=== PATIENT | male | born 1970 | race American Indian/Alaskan Native ===

== ENCOUNTER 2016-10-26 18:10 | Emergency (ER) | payer OTHER ==
[2016-10-26 18:16] VITALS: BP 126/66; PULSE 93; RESP 16; TEMP 98; O2SAT 98
[2016-10-26] MEDS ORDERED: Sodium Chloride 0.9% 1,000 ML IV STA (19:27)
--- NOTE | 2016-10-26 19:47 | ED PDOC ---
HPI: Abdomen Time Seen by Provider: 10/26/16 19:18 Chief Complaint (Nursing): GI Problem Chief Complaint (Provider): Abdominal Pain History Per: Patient, Family (Mother) History/Exam Limitations: no limitations Onset/Duration Of Symptoms: Days (today) Outside of [place] travel?: No Current Symptoms Are (Timing): Still Present Location Of Pain/Discomfort: Diffuse Quality Of Discomfort: Unable To Describe Associated Symptoms: Chills, Vomiting (x3, non-bilious/non-bloody), Diarrhea (x2 , non-bloody), Other (headache (not worst of life), cough (mild, x2 days), syncopal episode x1 (lasted 20 mins); no rhinorrhea, sore throat). denies: Fever Additional Complaint(s): Eben Das is a 45 year old male, with a past medical history inclusive of migraines and a stomach ulcer (no medications), who presents to the ED on , accompanied by his mother, for the evaluation of moderate, diffuse abdominal pain that he has experienced since this morning. Associated chills also reported in addition to 3 episodes of non-bilious/non-bloody vomiting, 2 episodes of non-bloody diarrhea, a mild cough (x2 days) and a headache (not worst of life). Patient also reports having syncopized earlier today, an episode which he reports lasted approximately 20 minutes. Denies injury/trauma as a result of syncopal episode as well as fever, rhinorrhea, sore throat, recent travel or known sick contacts. Of note, patient has a prior history of drug abuse (marijuana, cocaine) but states that he has not used in many years. PMD: none Past Medical History Reviewed: Historical Data, Nursing Documentation, Vital Signs Vital Signs: Last Vital Signs Temp 98.0 F 10/26/16 18:14 Pulse 93 H 10/26/16 18:14 Resp 16 10/26/16 18:14 BP 126/66 10/26/16 18:14 Pulse Ox 98 10/26/16 21:46 - Medical History PMH: Anemia, Asthma, Back Problems (scoliosis), Depression, Migraine Denies: Chronic Kidney Disease, Seizures Other PMH: peptic ulcer - Surgical History Other surgeries: craniotomy w/subsequent tube placement (s/p trauma) - Family History Family History: States: Other (stomach cancer (father)) - Social History Current smoker - smoking cessation education provided: Yes (occasional) Alcohol: Occasional (weekends) Drugs: Cannabis, Cocaine (teenager) - Home Medications Home Medications: Ambulatory Orders Medication Instructions Recorded Dicyclomine Hydrochloride 10 mg PO PRN PRN 10/30/13 [Dicyclomine HCl] Omeprazole [Omeprazole D/R] 20 mg PO DAILY 10/30/13 Docusate Sodium [Colace] 100 mg PO DAILY #30 sgl 09/07/14 Hard Fat/Phenylephrine [place] 1 sup RC BID #10 sup 09/07/14 [Anusol Suppository] Oxycodone HCl/Acetaminophen 1 tab PO Q6 #6 tab 09/07/14 [Percocet 325 mg-5 mg] - Allergies Allergies/Adverse Reactions: Allergies Allergy/AdvReac Type Severity Reaction Status Date / Time No Known Allergies Allergy Verified 10/26/16 18:14 Review of Systems ROS Statement: Except As Marked, All Systems Reviewed And Found Negative Constitutional: Positive for: Chills. Negative for: Fever ENT: Negative for: Nose Discharge, Throat Pain Cardiovascular: Positive for: Other (syncopal episode x1) Respiratory: Positive for: Cough. Negative for: Sputum Gastrointestinal: Positive for: Vomiting (x3, non-bilious/non-bloody), Abdominal Pain (diffuse), Diarrhea (x2, non-bloody) Neurological: Positive for: Headache (not worst of life) Physical Exam - Reviewed Nursing Documentation Reviewed: Yes Vital Signs Reviewed: Yes - Physical Exam Appears: Positive for: Non-toxic, Uncomfortable, In Acute Distress Head Exam: Positive for: ATRAUMATIC, NORMOCEPHALIC Skin: Positive for: Normal Color, Warm, Dry ENT: Positive for: Other (dry mucous membranes). Negative for: Pharyngeal Erythema, Tonsillar Exudate, Tonsillar Swelling Cardiovascular/Chest: Positive for: Regular Rate, Rhythm. Negative for: Murmur Respiratory: Positive for: Normal Breath Sounds. Negative for: Respiratory Distress Gastrointestinal/Abdominal: Positive for: Soft, Tenderness (diffuse), Guarding ( diffuse). Negative for: Rebound Extremity: Positive for: Normal ROM (FROM x4 extremities), Other (tremors noted within all extremities, poor muscle bulk diffusely) Neurologic/Psych: Positive for: Alert, Oriented - Laboratory Results Result Diagrams: 10/26/16 20:00 10/26/16 20:00 - ECG O2 Sat by Pulse Oximetry: 98 (RA) Pulse Ox Interpretation: Normal Medical Decision Making Medical Decision Makin:18 Initial Impression: abdominal pain, vomiting, diarrhea Initial Plan: * EKG * Blood Type/Screen * Labs * CPK * Lactic Acid * Lipase * Magnesium * Phosphorus * Troponin I * PTT * PT * Alcohol Serum * Glucose/Blood/POC * Udip * Urinalysis * Urine Drug screen * IV NS 1000ml at 1000mls/hr * Dextrose 1000ml at 100mls/hr * Pepcid 20mg IVP * Zofran 8mg IV * Reevaluation EXAM: CT Abdomen and Pelvis With Intravenous Contrast CLINICAL HISTORY: 45 years old, male; Pain; Abdominal pain; Generalized; Additional info: Vomiting leukocytosis. Sent e. D. Physician documentation with request TECHNIQUE: Axial computed tomography images of the abdomen and pelvis with intravenous contrast. This CT exam was performed using one or more of the following dose reduction techniques: automated exposure control, adjustment of the mA and/or kV according to patient size, and/or use of iterative reconstruction technique. Coronal and sagittal reformatted images were created and reviewed. CONTRAST: 90 mL of [id number] administered intravenously. COMPARISON: No relevant prior studies available. FINDINGS: Lower thorax: Small bulla in the lung bases. ABDOMEN: Liver: Tiny probable cysts in the liver. Gallbladder and bile ducts: Unremarkable. No calcified stones. No ductal dilation. Pancreas: Unremarkable. No mass. No ductal dilation. Spleen: Unremarkable. No splenomegaly. Adrenals: Unremarkable. No mass. Kidneys and ureters: Left renal cyst. No hydronephrosis. Stomach and bowel: Unremarkable. No obstruction. No mucosal thickening. Appendix: Normal appendix. PELVIS: Bladder: Unremarkable. No mass. Reproductive: Unremarkable as visualized. ABDOMEN and PELVIS: Intraperitoneal space: Unremarkable. No free air. No significant fluid collection. Bones/joints: No acute fracture. No dislocation. Soft tissues: Unremarkable. Vasculature: Unremarkable. No abdominal aortic aneurysm. Lymph nodes: Unremarkable. No enlarged lymph nodes. IMPRESSION: No acute findings. Thank you for allowing us to participate in the care of your patient. Dictated and Authenticated by: Hardik Calle MD 10/26/2016 9:27 PM Eastern Time ([place] & [place]) 21:54 Labs reviewed, notable for leukocytosis and elevated lactic acid. Upon provider reevaluation patient reports that he is feeling better. Will attempt PO challenge and repeat CBC and lactic acid. Scribe Attestation: Documented by Alia Daniel, acting as a scribe for Patricia Dejesus MD. Provider Scribe Attestation: All medical record entries made by the Scribe were at my direction and personally dictated by me. I have reviewed the chart and agree that the record accurately reflects my personal performance of the history, physical exam, medical decision making, and the department course for this patient. I have also personally directed, reviewed, and agree with the discharge instructions and disposition.
[2016-10-26 20:32] LABS: BASO % 0.1 % (0.0-2.0); HEMATOCRIT 46.1 % (35.0-51.0); LYMPH # 0.7 K/uL (1.0-4.3); LYMPH % 3.8 % (20.0-40.0); MEAN CELL VOLUME 95.1 fl (80.0-94.0); MEAN CORPUSCULAR HEMOGLOBIN 31.9 pg (27.0-31.0); MEAN CORPUSCULAR HGB CONC 33.6 g/dL (33.0-37.0); MEAN PLATELET VOLUME 10.6 fl (7.2-11.7); MONO # 1.1 K/uL (0.0-0.8); MONO % 5.8 % (0.0-10.0); NEUT # 17.5 K/uL (1.8-7.0); NEUT % 90.3 % (50.0-75.0); PLATELET COUNT 88 K/uL (130-400); RED CELL DISTRIBUTION WIDTH 12.9 % (11.5-14.5); WHITE BLOOD COUNT 19.3 K/uL (4.8-10.8)
[2016-10-26 20:40] LABS: ALB/GLOB RATIO 1.4 (1.0-2.1); ALCOHOL SERUM < 10 mg/dl (0-10); ALKALINE PHOSPHATASE 106 U/L (38-126); ALT/SGPT 34 U/L (21-72); AST/SGOT 31 U/L (17-59); BILIRUBIN,TOTAL 0.9 mg/dl (0.2-1.3); BLOOD UREA NITROGEN 11 mg/dl (9-20); CALCIUM 9.3 mg/dL (8.4-10.2); CARBON DIOXIDE 23 mmol/L (22-30); CHLORIDE 102 mmol/L (98-107); GFR AFRICAN-AMERICAN > 60; GLUCOSE,RANDOM 130 mg/dL (75-110); LIPASE 27 U/L (23-300); MAGNESIUM 2.5 MG/DL (1.6-2.3); POTASSIUM 3.9 MMOL/L (3.6-5.0); SODIUM 136 mmol/l (132-148); TOTAL PROTEIN 7.7 G/DL (6.3-8.2)
[2016-10-26] MEDS ORDERED: Iohexol 300 100 ML IJ ONE (20:48)
[2016-10-26] MEDS ORDERED: Sodium Chloride 0.9% 50 ML IV ONE (20:48)
[2016-10-26 21:05] LABS: TOTAL CELLS COUNTED 100
[2016-10-26 21:06] LABS: GIANT PLATELETS PRESENT; LARGE PLATELETS PRESENT; NEUTROPHIL 90 % (42-75)
[2016-10-26 21:07] LABS: PARTIAL THROMBOPLASTIN TIME 25.8 SECONDS (23.3-32.5)
[2016-10-26 22:17] LABS: RBC URINE 5 /hpf (0-3); URINE BILIRUBIN NEGATIVE (NEGATIVE); URINE BLOOD SMALL (NEGATIVE); URINE CALCIUM OXALATE CRYSTALS MOD /hpf (<OCC); URINE COLOR YELLOW (YELLOW); URINE GLUCOSE (UA) 50 mg/dL (Normal); URINE KETONE TRACE mg/dL (NEGATIVE); URINE LEUKOCYTE ESTERASE NEG Leu/uL (Negative); URINE PROTEIN 30 mg/dL (NEGATIVE); URINE UROBILINOGEN 0.2-1.0 mg/dL (0.2-1.0); WBC URINE 2 /hpf (0-5)
[2016-10-26 22:40] LABS: BASO % 0.1 % (0.0-2.0); HEMATOCRIT 42.9 % (35.0-51.0); LYMPH # 0.6 K/uL (1.0-4.3); LYMPH % 3.4 % (20.0-40.0); MEAN CELL VOLUME 95.4 fl (80.0-94.0); MEAN CORPUSCULAR HGB CONC 33.6 g/dL (33.0-37.0); MEAN PLATELET VOLUME 11.4 fl (7.2-11.7); MONO # 0.9 K/uL (0.0-0.8); MONO % 5.2 % (0.0-10.0); NEUT # 16.4 K/uL (1.8-7.0); NEUT % 91.3 % (50.0-75.0); WHITE BLOOD COUNT 17.9 K/uL (4.8-10.8)
--- NOTE | 2016-10-27 08:44 | CT ---
PROCEDURE: CT Abdomen and Pelvis with contrast HISTORY: vomiting leukocytosis COMPARISON: None. TECHNIQUE: Contrast dose: Radiation dose: Total exam DLP = mGy-cm. FINDINGS: LOWER THORAX: Unremarkable. LIVER: Unremarkable. No gross lesion or ductal dilatation. GALLBLADDER AND BILE DUCTS: Unremarkable. PANCREAS: Unremarkable. No gross lesion or ductal dilatation. SPLEEN: Unremarkable. ADRENALS: Unremarkable. No mass. KIDNEYS AND URETERS: Unremarkable. No hydronephrosis. No solid mass. 1 centimeter left renal cyst. VASCULATURE: Unremarkable. No aortic aneurysm. BOWEL: Unremarkable. No obstruction. No gross mural thickening. APPENDIX: Normal appendix. PERITONEUM: Unremarkable. No free fluid. No free air. LYMPH NODES: Unremarkable. No enlarged lymph nodes. BLADDER: Unremarkable. REPRODUCTIVE: Unremarkable. BONES: No acute fracture. OTHER FINDINGS: None. IMPRESSION: 1 centimeter left renal cyst.
--- NOTE | 2016-10-27 11:41 | CARD ---
APPROVED REPORT EKG Measurement Heart [id number] <Conclusion> Normal sinus rhythm with sinus arrhythmia Incomplete right bundle branch block Nonspecific T wave abnormality Abnormal ECG
== END 2016-10-27 00:33 | disposition home or self-care (01) ==
LOC: H.ER 18:10
DX: R05 Cough (principal); D72.829 Elevated white blood cell count, unspecified; N28.1 Cyst of kidney, acquired

== ENCOUNTER 2016-12-11 01:00 | Emergency (ER) | payer OTHER ==
[2016-12-11 01:20] VITALS: BP 146/96; PULSE 80; RESP 16; TEMP 98.4; O2SAT 99
[2016-12-11] MEDS ORDERED: Lidocaine 2.5% OINTMENT TOP ONE (01:42)
[2016-12-11 02:04] LABS: HEMATOCRIT 43.5 % (35.0-51.0); MEAN CELL VOLUME 96.5 fl (80.0-94.0); MEAN CORPUSCULAR HEMOGLOBIN 32.3 pg (27.0-31.0); MEAN CORPUSCULAR HGB CONC 33.4 g/dL (33.0-37.0); RED CELL DISTRIBUTION WIDTH 13.4 % (11.5-14.5); WHITE BLOOD COUNT 10.5 K/uL (4.8-10.8)
--- NOTE | 2016-12-11 02:21 | ED PDOC ---
HPI: Abdomen Time Seen by Provider: 12/11/16 01:17 Chief Complaint (Nursing): Abdominal Pain Chief Complaint (Provider): Abdominal Pain History Per: Patient History/Exam Limitations: no limitations Current Symptoms Are (Timing): Still Present Additional History Per: Patient Additional Complaint(s): Eben Das is a 46 year old male with a past medical history of asthma, anemia, back problems, migraines, and depression, who presents to the ED with a chief complaint of rectal pain. Denies any associated symptoms including abdominal pain. Patient reports she noticed yesterday that there was blood in the stool and she was straining due to constipation. Past Medical History Reviewed: Historical Data, Nursing Documentation, Vital Signs Vital Signs: Last Vital Signs Temp 98.4 F 12/11/16 01:15 Pulse 80 12/11/16 01:15 Resp 16 12/11/16 01:15 BP 146/96 H 12/11/16 01:15 Pulse Ox 99 12/11/16 02:56 - Medical History PMH: Anemia, Asthma, Back Problems (scoliosis), Depression, Migraine Denies: Chronic Kidney Disease, Seizures - Surgical History Surgical History: No Surg Hx - Family History Family History: States: No Known Family Hx - Home Medications Home Medications: Ambulatory Orders Medication Instructions Recorded Dicyclomine Hydrochloride 10 mg PO PRN PRN 10/30/13 [Dicyclomine HCl] Omeprazole [Omeprazole D/R] 20 mg PO DAILY 10/30/13 Docusate Sodium [Colace] 100 mg PO DAILY #30 sgl 09/07/14 Hard Fat/Phenylephrine [place] 1 sup RC BID #10 sup 09/07/14 [Anusol Suppository] Oxycodone HCl/Acetaminophen 1 tab PO Q6 #6 tab 09/07/14 [Percocet 325 mg-5 mg] Dicyclomine [Bentyl] 20 mg PO BID PRN #30 tab 10/26/16 Omeprazole Magnesium [Prilosec Otc] 20 mg PO DAILY #30 tcp 10/26/16 Ondansetron [Zofran] 4 mg PO Q8H PRN #30 tab 10/26/16 Docusate [Colace] 100 mg PO BID #20 cap 12/11/16 Phenyleph/Pramoxin/Glycr/W.pet 26 gm RC BID #1 cream..g. 12/11/16 [Preparation H Cream] - Allergies Allergies/Adverse Reactions: Allergies Allergy/AdvReac Type Severity Reaction Status Date / Time No Known Allergies Allergy Verified 10/26/16 18:14 Review of Systems ROS Statement: Except As Marked, All Systems Reviewed And Found Negative Gastrointestinal: Positive for: Constipation, Rectal Pain. Negative for: Abdominal Pain Physical Exam - Reviewed Nursing Documentation Reviewed: Yes Vital Signs Reviewed: Yes - Physical Exam Appears: Positive for: Well, No Acute Distress Head Exam: Positive for: ATRAUMATIC, NORMAL INSPECTION, NORMOCEPHALIC Skin: Positive for: Normal Color, Warm, Dry Eye Exam: Positive for: Normal appearance, EOMI, PERRL ENT: Positive for: Normal ENT Inspection Neck: Positive for: Normal, Painless ROM, Supple Cardiovascular/Chest: Positive for: Regular Rate, Rhythm, Chest Non Tender. Negative for: Murmur, Tachycardia Respiratory: Positive for: Normal Breath Sounds Gastrointestinal/Abdominal: Positive for: Soft, Other. Negative for: Tenderness , Mass, Guarding, Rebound Male Genital Exam: Positive for: normal genitalia Back: Positive for: Normal Inspection Rectal: Positive for: Hemorrhoids (External), Other (No thrombrosis, pink, fleshy, reducible, scant blood) Extremity: Positive for: Normal ROM Neurologic/Psych: Positive for: Alert, Oriented - Laboratory Results Result Diagrams: 12/11/16 01:58 - ECG O2 Sat by Pulse Oximetry: 99 (RA) Pulse Ox Interpretation: Normal Medical Decision Making Medical Decision Makin: Initial Impression: Hemorrhoid Initial Plan: * CBC * Lidocain 2.5% * Will prescribe creme and have patent follow up with GI Patient platelets is 77 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 Scribe Attestation: Documented by Harman Rincon acting as a scribe for Stephan Daly MD. Provider Scribe Attestation: All medical record entries made by the Scribe were at my direction and personally dictated by me. I have reviewed the chart and agree that the record accurately reflects my personal performance of the history, physical exam, medical decision making, and the department course for this patient. I have also personally directed, reviewed, and agree with the discharge instructions and disposition. Disposition - Clinical Impression Clinical Impression: Hemorrhoids, Thrombocytopenia - Disposition Referrals: [facility] [Outside] Hardik Tyler MD, PhD [Staff Provider] - Disposition Time: 02:30 Condition: STABLE Prescriptions: Docusate [Colace] 100 mg PO BID #20 cap Phenyleph/Pramoxin/Glycr/W.pet [Preparation H Cream] 26 gm RC BID #1 cream..g. Instructions: Hemorrhoids (ED)
== END 2016-12-11 03:20 | disposition home or self-care (01) ==
LOC: H.ER 01:00
DX: K64.8 Other hemorrhoids (principal); D69.6 Thrombocytopenia, unspecified

== ENCOUNTER 2017-04-05 13:08 | Inpatient (IN) | payer OTHER ==
--- NOTE | 2017-04-05 13:39 | ED PDOC ---
HPI: General Adult Time Seen by Provider: 04/05/17 13:34 Chief Complaint (Nursing): Abdominal Pain Chief Complaint (Provider): nausea History Per: Patient Additional Complaint(s): Patient presents to emergency department complaining of nausea, vomiting and generalized body aches. Patient denies any known fever or chills. He denies any chest pain or shortness of breath. Patient has had dry cough as well. Patient admits to having a poor appetite over the past few days. He admits to occasional alcohol use and marijuana use but denies use of any other drugs. EMS who brought patient to ED states that he has history of heroin abuse. Past Medical History Reviewed: Historical Data, Nursing Documentation, Vital Signs Vital Signs: Last Vital Signs Temp 97.5 F L 04/05/17 18:40 Pulse 86 04/05/17 18:40 Resp 24 04/05/17 18:40 BP 106/60 04/05/17 18:40 Pulse Ox 99 04/05/17 18:43 - Medical History PMH: Anemia, Asthma, Back Problems (scoliosis), Depression, Migraine - Surgical History Other surgeries: placement of shunt in brain - Family History Family History: States: No Known Family Hx - Living Arrangements Living Arrangements: With Family - Social History Current smoker - smoking cessation education provided: Yes Alcohol: Social Drugs: Cannabis - Home Medications Home Medications: Ambulatory Orders Medication Instructions Recorded No Known Home Med 04/05/17 - Allergies Allergies/Adverse Reactions: Allergies Allergy/AdvReac Type Severity Reaction Status Date / Time No Known Allergies Allergy Verified 10/26/16 18:14 Review of Systems ROS Statement: Except As Marked, All Systems Reviewed And Found Negative Constitutional: Positive for: Weakness, Malaise, Other (body aches). Negative for: Fever, Chills Cardiovascular: Negative for: Chest Pain, Palpitations Respiratory: Positive for: Cough (dry) Gastrointestinal: Positive for: Nausea, Vomiting, Abdominal Pain, Diarrhea Genitourinary Male: Negative for: Dysuria Neurological: Positive for: Headache (patient states he has chronic migraines). Negative for: Dizziness Physical Exam - Reviewed Nursing Documentation Reviewed: Yes Vital Signs Reviewed: Yes - Physical Exam Appears: Positive for: Non-toxic. Negative for: Well (appears cachectic) Skin: Negative for: Rash Eye Exam: Positive for: Normal appearance, EOMI, PERRL Cardiovascular/Chest: Positive for: Regular Rate, Rhythm Respiratory: Positive for: Normal Breath Sounds. Negative for: Wheezing, Respiratory Distress Gastrointestinal/Abdominal: Positive for: Tenderness (moderate tenderness in all 4 quadrants, no distention, guarding or rebound, normoactive bowel sounds in all 4 quadrants) Back: Negative for: L CVA Tenderness, R CVA Tenderness Extremity: Positive for: Normal ROM Neurologic/Psych: Positive for: Alert, Oriented - Laboratory Results Result Diagrams: 04/05/17 14:00 04/05/17 14:00 - ECG O2 Sat by Pulse Oximetry: 99 Pulse Ox Interpretation: Normal - Other Rad Chest Bedside X-Ray: Interpreted by Me, Viewed By Me X-Ray Interpretation: see below CT abd and pelvis with oral and IV contrast X-Ray: Read By Radiologist - Core Measure Core Measure Indicators: Code Sepsis - Critical Care Total Time (In Min): 45 Medical Decision Making Medical Decision Makin46 year old with generalized malaise Plan: CBC CMP Trop Lipase UDS CPK UA EKG CXR IVF IV toradol IV zofran CT abd and pelvis with oral and IV contrast ED OBSERVATION Date of observation admission: 04/05/17 Time of observation admission: 14:21 - Observation admission statement Patient is being placed in observation because:: Abdominal pain, malaise - Goals of Observation Goals of observation are:: Work up to determine cause of presenting symptoms - Progress Note Progress Note: CXR: IMPRESSION: Findings are most compatible with acute interstitial/ atypical/ viral pneumonitis. No focal consolidation. Lactate: 5.3, WBC 22.4. Platelets also noted to be low at 77 but this is unchanged when compared to previous labs. Case was d/w ED attending Dr. Black. Code sepsis initiated. Patient given fluid bolus (30 ml/kg) - 1500 cc. IV zosyn and vanco ordered. CXR shows pneumonitis, IV 500 mg Zithromax ordered. Case was d/w Change Booth Attendant, Dr. Butler regarding ICU admission. Case was also d/w family practice resident for admission. CT abd and pelvis: IMPRESSION: 1. No acute abdominal or pelvic abnormality. Specifically, no evidence of acute appendicitis or bowel obstruction. 2. Moderate enlargement of the prostate gland. Please correlate with PSA levels. 3. Apparent mild mural thickening of the urinary bladder wall. Please correlate with urine analysis to exclude cystitis. As per Dr. Butler, CT head ordered as patient has history of shunt. Repeat Lactate is 2.0. Patient can be admitted to Telemetry instead of ICU. CT head: no acute finding Disposition - Clinical Impression Clinical Impression: Abdominal pain, Sepsis - Patient ED Disposition Is Patient to be Admitted: Yes - Disposition Disposition Time: 18:15 Condition: CRITICAL
[2017-04-05] MEDS ORDERED: Sodium Chloride 0.9% 1,000 ML IV STA (13:49)
[2017-04-05 14:10] LABS: BASO # 0.1 K/uL (0.0-0.2); BASO % 0.3 % (0.0-2.0); HEMATOCRIT 45.2 % (35.0-51.0); LYMPH # 0.7 K/uL (1.0-4.3); LYMPH % 3.4 % (20.0-40.0); MEAN CELL VOLUME 96.2 fl (80.0-94.0); MEAN CORPUSCULAR HEMOGLOBIN 32.2 pg (27.0-31.0); MEAN CORPUSCULAR HGB CONC 33.4 g/dL (33.0-37.0); MEAN PLATELET VOLUME 11.2 fl (7.2-11.7); MONO % 4.6 % (0.0-10.0); NEUT # 20.5 K/uL (1.8-7.0); NEUT % 91.7 % (50.0-75.0); PLATELET COUNT 77 K/uL (130-400); RED CELL DISTRIBUTION WIDTH 12.8 % (11.5-14.5); WHITE BLOOD COUNT 22.4 K/uL (4.8-10.8)
[2017-04-05] MEDS ORDERED: Iohexol 240 (50 ml) PO STA (14:19)
[2017-04-05 14:21] LABS: ALB/GLOB RATIO 1.7 (1.0-2.1); ALCOHOL SERUM < 10 mg/dl (0-10); ALKALINE PHOSPHATASE 95 U/L (38-126); ALT/SGPT 35 U/L (21-72); AST/SGOT 27 U/L (17-59); BILIRUBIN,TOTAL 0.6 mg/dl (0.2-1.3); BLOOD UREA NITROGEN 13 mg/dl (9-20); CALCIUM 9.1 mg/dL (8.4-10.2); CARBON DIOXIDE 20 mmol/L (22-30); CHLORIDE 105 mmol/L (98-107); GFR AFRICAN-AMERICAN > 60; GLUCOSE,RANDOM 132 mg/dL (75-110); LIPASE 21 U/L (23-300); POTASSIUM 4.1 MMOL/L (3.6-5.0); SODIUM 138 mmol/l (132-148); TOTAL PROTEIN 7.3 G/DL (6.3-8.2)
[2017-04-05 14:23] LABS: RBC URINE 4 /hpf (0-3); URINE BACTERIA RARE (<OCC); URINE BILIRUBIN NEGATIVE (NEGATIVE); URINE BLOOD SMALL (NEGATIVE); URINE COLOR STRAW (YELLOW); URINE GLUCOSE (UA) NEG (Normal); URINE KETONE NEGATIVE (NEGATIVE); URINE LEUKOCYTE ESTERASE NEG Leu/uL (Negative); URINE PROTEIN 30 mg/dL (NEGATIVE); URINE UROBILINOGEN 0.2-1.0 mg/dL (0.2-1.0); WBC URINE 1 /hpf (0-5)
--- NOTE | 2017-04-05 14:24 | RAD ---
HISTORY: malaise COMPARISON: 06/08/2012. FINDINGS: LUNGS: The lungs are well inflated. There are diffuse reticular nodular opacities in both lungs. No focal consolidation. PLEURA: No significant pleural effusion identified, no pneumothorax apparent. CARDIOVASCULAR: Normal. OSSEOUS STRUCTURES: No significant abnormalities. VISUALIZED UPPER ABDOMEN: Normal. OTHER FINDINGS: None. IMPRESSION: Findings are most compatible with acute interstitial/ atypical/viral pneumonitis. No focal consolidation.
[2017-04-05 14:40] LABS: VENOUS BLOOD GAS BASE EXCESS -4.9 mmol/L (0.0-2.0); VENOUS BLOOD GAS PCO2 47 mmHg (40-60); VENOUS BLOOD PH 7.28 (7.32-7.43)
[2017-04-05] MEDS ORDERED: Iohexol 240 (50 ml) ONE (14:59)
[2017-04-05] MEDS ORDERED: Piperacillin/Tazobact 4.5 GM in Sodium Chloride 0.9% 100 ML IVPB STA (15:15)
[2017-04-05 15:26] LABS: NEUTROPHIL 91 % (42-75); TOTAL CELLS COUNTED 100
[2017-04-05] MEDS ORDERED: Azithromycin 500 MG in Sodium Chloride 0.9% 250 ML IVPB STA (15:31)
[2017-04-05] MEDS ORDERED: Vancomycin 1 g Inj ONE (15:38)
[2017-04-05] MEDS ORDERED: Sodium Chloride 0.9% 1,500 ML IV STA (15:39)
[2017-04-05 15:58] LABS: MAGNESIUM 1.9 MG/DL (1.6-2.3); PHOSPHOROUS 2.4 mg/dl (2.5-4.5)
[2017-04-05 16:05] LABS: PARTIAL THROMBOPLASTIN TIME 29.2 Seconds (25.6-37.1)
[2017-04-05] MEDS ORDERED: Iohexol 300 50 ML ONE (16:34)
[2017-04-05] MEDS ORDERED: Sodium Chloride 0.9% 50 ML IV ONE (16:34)
--- NOTE | 2017-04-05 16:53 | CP.PCM.HP ---
History of Present Illness - History of Present Illness History of Present Illness: 46 y/o M with PMHx that includes Asthma otherwise unspecified, Scoliosis, Hydrocephalus ?( s/p shunt 3-4 years ago), Peptic ulcer, Depression, Hemorrhoids , Tremors? who presents to ED c/o RLQ abdominal pain that started yesterday, no radiating, 10/10, associated with nausea, and vomiting x 4-5 times, and chills. Patient denies fevers, diarrheas, blood in urine, blood in stools, or urinary symptoms. Patient also reports poor appetite for the past 1-2 weeks, unintentional weight loss for the last couple of months. He admits to occasional alcohol use, and marijuana use but denies use of any other drugs. EMS who brought patient to ED states that he has history of heroin abuse. Patient crying during interview and reports he feels depressed for 1-2 weeks, denies suicidal/homicidal ideation. Patient reports that his weight is around 118 lb. PMD: None PMHx: as per HPI SHx: Brain surgery/Shunt 2-3 years ago SocialHx: smoker/as per patient " on and off", etoh: 2 drinks 1-2 times per week , drugs: Marijuana Lives with his mother. Sexual partner are females, 1-2 partners in last year ED course: CODE sepsis called VS: T: 97.5, HR: 92/min PE: alert, awake, oriented x 3, crying CV: RRR, normal S1, S2, no murmur resp: CTA bilateral, no rales, rhonchi or wheezing noted abdomen: involuntary abdominal muscles contraction, tender to palpation of right upper/lower abdomen, no rebound tenderness, BS + ext: no edema, no calves tenderness noted neuro: alert, grossly normal, no apparent neurological deficit Treatment: IV fluids 1 L NSS, Toradol x pain 30 mgIV, Zofran 4 mg IV, Vanco 1 GM IVP Present on Admission - Present on Admission Any Indicators Present on Admission: No History of DVT/PE: No History of Uncontrolled Diabetes: No Urinary Catheter: No Decubitus Ulcer Present: No Review of Systems - Review of Systems All systems: reviewed and no additional remarkable complaints except (as per HPI ) Past Patient History - Past Medical History & Family History Past Medical History?: Yes - Past Social History Alcohol: Social Drugs: Cannabis - CARDIAC Hx Cardiac Disorders: No - PULMONARY Hx Asthma: Yes - NEUROLOGICAL Hx Migraine: Yes - HEENT Hx HEENT Problems: No - RENAL Hx Chronic Kidney Disease: No - ENDOCRINE/METABOLIC Hx Endocrine Disorders: No - HEMATOLOGICAL/ONCOLOGICAL Hx Anemia: Yes - INTEGUMENTARY Hx Dermatological Problems: No - MUSCULOSKELETAL/RHEUMATOLOGICAL Hx Musculoskeletal Disorders: No - GASTROINTESTINAL Hx Gastrointestinal Disorders: Yes Hx Irritable Bowel: Yes - GENITOURINARY/GYNECOLOGICAL Hx Genitourinary Disorders: No - PSYCHIATRIC Hx Depression: Yes - SURGICAL HISTORY Hx Surgeries: Yes (CRAINIOTOMY W/ SHUNT & PLATE) - ANESTHESIA Hx Anesthesia: Yes Hx Anesthesia Reactions: No Hx Malignant Hyperthermia: No Meds Allergies/Adverse Reactions: Allergies Allergy/AdvReac Type Severity Reaction Status Date / Time No Known Allergies Allergy Verified 10/26/16 18:14 Physical Exam - Constitutional Appears: Cachectic Additional comments: crying during interview - ENT Exam ENT Exam: Mucous Membranes Dry - Respiratory Exam Respiratory Exam: Clear to Auscultation Bilateral, NORMAL BREATHING PATTERN. absent: Rales, Rhonchi, Wheezes, Respiratory Distress - Cardiovascular Exam Cardiovascular Exam: REGULAR RHYTHM, +S1, +S2 - GI/Abdominal Exam GI & Abdominal Exam: Normal Bowel Sounds, Tenderness. absent: Distended, Rebound Additional comments: Involuntary muscles contractions - Neurological Exam Neurological exam: Alert, Oriented x3 - Skin Additional comments: Diffuse oval shape hyperpigmented macules over upper/lower back Results - Vital Signs Recent Vital Signs: Last Vital Signs Temp 97.5 F L 04/05/17 13:14 Pulse 92 H 04/05/17 15:23 Resp 18 04/05/17 15:23 BP 103/68 04/05/17 15:23 Pulse Ox 99 04/05/17 16:09 - Labs Result Diagrams: 04/05/17 14:00 04/05/17 14:00 Labs: Laboratory Results - last 24 hr 04/05/17 04/05/17 15:25 15:25 PT 10.5 INR 1.0 APTT 29.2 Phosphorus 2.4 L Magnesium 1.9 Assessment & Plan - Assessment and Plan (Free Text) Assessment: 46 y/o M with PMHx that includes Asthma otherwise unspecified, Scoliosis, Hydrocephalus ( s/p shunt 3-4 years ago), Peptic ulcer, Depression, Hemorrhoids , Tremors? admitted with sepsis. Plan: Sepsis unclear etiology 3 Systemic Inflammatory Response Syndrome criteria + possible source Pneumonia R/O Sepsis? -admit to ICU -VS: T: 97.5 F, HR: 92 -CBC: WBC: 22.4 -ABG: PH: 7.28, lactate 5.3 -BUN/Cr:13.0/0.8, GFR: >60 -Troponin I x 1 neg -CXR: showed evidence of acute interstitial/atypical/viral pneumonitis -s/p Vanco 1 gm IVP once, Zosyn 4.5 gm IV, and Azithromycin 500 mg -IV fluids -Consider ID consult -f/u Blood Cx -f/u Urine Cx -f/u CBC, BMP -f/u HIV, RPR, lactic acid plasma Abdominal pain -associated to N/V -NPO -Leukocytosis 22.4 -UA positive for small blood -Urine Tox positive x marijuana -pain control -zofran for nausea -Abdominal CT scan showed no acute or pelvic abnormality, no evidence of acute appendicitis or bowel obstruction. Moderate enlargement of prostate. Mild mural thickening of urinary bladder wall. Thrombocytopenia -Plt: 77 unclear etiology, but patient's plt have been running low between 70s-80s since 2014 Consider Hemo consult h/o Depression -reports depressed mood for 2 weeks -denies suicidal/homicidal ideation -no in any home medications -consider Psych consult Underweight BMI : 17.0 h/o Asthma otherwise unspecified -asymptomatic -in no home meds DVT prophylaxis SCDs for now No anticoagulants /Low platelets - Date & Time Date: 04/05/17 Time: 16:15
--- NOTE | 2017-04-05 17:27 | CT ---
PROCEDURE: CT Abdomen and Pelvis with contrast HISTORY: Generalized abdominal, vomiting and diarrhea COMPARISON: 10/26/2016. TECHNIQUE: CT scan of the abdomen and pelvis was performed after administration of intravenous contrast. Oral contrast was administered. Coronal and sagittal reformatted images were obtained. Contrast dose: 80 mL Visipaque 320 Radiation dose: Total exam DLP = 245.65 mGy-cm. This CT exam was performed using one or more of the following dose reduction techniques: Automated exposure control, adjustment of the mA and/or kV according to patient size, and/or use of iterative reconstruction technique. FINDINGS: LOWER THORAX: There is dependent atelectasis in the lung bases. There is scattered centrilobular emphysema in the visualized lungs. LIVER: The liver is normal in size and there is homogeneous enhancement. . No gross lesion or ductal dilatation. GALLBLADDER AND BILE DUCTS: There are no calcified gallstones. PANCREAS: Normal in size with homogeneous enhancement. No gross lesion or ductal dilatation. SPLEEN: There is borderline splenomegaly. No focal lesion. ADRENALS: Both adrenal glands are normal in size without discrete nodule. KIDNEYS AND URETERS: Both kidneys are normal in size and there is homogeneous enhancement without hydronephrosis or focal mass. There is a stable 10 mm simple cyst in the interpolar region of the left kidney. A tiny low-attenuation lesion in the interpolar region anteriorly is too small to characterize by CT criteria but statistically likely a tiny cortical cyst. VASCULATURE: No aortic aneurysm. BOWEL: The small bowel loops are normal in caliber. The colon is unremarkable. No bowel dilatation or obstruction. APPENDIX: Normal appendix. PERITONEUM: No free fluid. No free air. LYMPH NODES: No enlarged lymph nodes. BLADDER: There is apparent mild mural thickening of the urinary bladder wall. REPRODUCTIVE: There is moderate enlargement of the prostate gland. BONES: No acute fracture. Within normal limits for the patient's age. OTHER FINDINGS: None. IMPRESSION: 1. No acute abdominal or pelvic abnormality. Specifically, no evidence of acute appendicitis or bowel obstruction. 2. Moderate enlargement of the prostate gland. Please correlate with PSA levels. 3. Apparent mild mural thickening of the urinary bladder wall. Please correlate with urine analysis to exclude cystitis.
--- NOTE | 2017-04-05 17:48 | CP.PCM.CON ---
History of Present Illness - History of Present Illness History of Present Illness: 46 y/o M with PMHx that includes Asthma otherwise unspecified, Scoliosis, Hydrocephalus ( s/p shunt 3-4 years ago), Peptic ulcer, Depression, Hemorrhoids , Tremors, who presents to ED c/o RLQ abdominal pain that started yesterday, no radiating, /10, associated with nausea, and vomiting x 4-5 times, and chills. Patient denies fevers, diarrheas, blood in urine, blood in stools, or urinary symptoms. Review of Systems - Review of Systems All systems: reviewed and no additional remarkable complaints except - Gastrointestinal Gastrointestinal: Abdominal Pain (now resolved), Nausea (now resolved), Vomiting (now resolved) Past Patient History - Past Medical History & Family History Past Medical History?: Yes - Past Social History Alcohol: Social Drugs: Cannabis - CARDIAC Hx Cardiac Disorders: No - PULMONARY Hx Asthma: Yes - NEUROLOGICAL Hx Migraine: Yes - HEENT Hx HEENT Problems: No - RENAL Hx Chronic Kidney Disease: No - ENDOCRINE/METABOLIC Hx Endocrine Disorders: No - HEMATOLOGICAL/ONCOLOGICAL Hx Anemia: Yes - INTEGUMENTARY Hx Dermatological Problems: No - MUSCULOSKELETAL/RHEUMATOLOGICAL Hx Musculoskeletal Disorders: No - GASTROINTESTINAL Hx Gastrointestinal Disorders: Yes Hx Irritable Bowel: Yes - GENITOURINARY/GYNECOLOGICAL Hx Genitourinary Disorders: No - PSYCHIATRIC Hx Depression: Yes - SURGICAL HISTORY Hx Surgeries: Yes (CRAINIOTOMY W/ SHUNT & PLATE) - ANESTHESIA Hx Anesthesia: Yes Hx Anesthesia Reactions: No Hx Malignant Hyperthermia: No Meds Allergies/Adverse Reactions: Allergies Allergy/AdvReac Type Severity Reaction Status Date / Time No Known Allergies Allergy Verified 10/26/16 18:14 - Medications Medications: Current Medications Ketorolac Tromethamine (Toradol) 30 mg IVP Q6 PRN PRN Reason: Pain, Mild (1-3) Morphine Sulfate (Morphine) 2 mg IVP Q6 PRN PRN Reason: Pain, moderate (4-7) Morphine Sulfate (Morphine) 4 mg IVP Q6 PRN PRN Reason: Pain, severe (8-10) Physical Exam - Head Exam Head Exam: ATRAUMATIC, NORMAL INSPECTION, NORMOCEPHALIC - Eye Exam Eye Exam: EOMI, Normal appearance, PERRL - ENT Exam ENT Exam: Mucous Membranes Moist, Normal Exam - Respiratory Exam Respiratory Exam: Clear to Auscultation Bilateral, NORMAL BREATHING PATTERN - Cardiovascular Exam Cardiovascular Exam: REGULAR RHYTHM - GI/Abdominal Exam GI & Abdominal Exam: Normal Bowel Sounds, Soft. absent: Guarding, Rebound, Tenderness - Neurological Exam Neurological exam: Alert, CN II-XII Intact, Oriented x3 - Psychiatric Exam Psychiatric exam: Normal Affect, Normal Mood Results - Vital Signs Recent Vital Signs: Last Vital Signs Temp 97.5 F L 04/05/17 13:14 Pulse 92 H 04/05/17 15:23 Resp 18 04/05/17 15:23 BP 103/68 04/05/17 15:23 Pulse Ox 99 04/05/17 16:09 - Labs Result Diagrams: 04/05/17 14:00 04/05/17 14:00 Assessment & Plan (1) Gastroenteritis Assessment and Plan: 46yo M. PMHx Asthma otherwise unspecified, Scoliosis, Hydrocephalus (s/p shunt 3 -4 years ago), Peptic ulcer, Depression, Hemorrhoids, Tremors? who presents to ED c/o RLQ abdominal pain that started yesterday, no radiating, 10/10, associated with nausea, and vomiting x 4-5 times, and chills. Patient denies fevers, diarrheas, blood in urine, blood in stools, or urinary symptoms. Patient's responded well to fluid boluses, with dramatic reduction in lactate. SIRS reaction, with no definitive source of sepsis, CXR clear, urine clear, no signs of cellulitis, CT abdomen negative. Possible viral gastroenteritis with nausea vomiting, but no diarrhea. Will obtain head CT to assess shunt, if there is blockage, but also highly unlikely as no severe headache and symptoms resolved after fluid resuscitation. Patient has these episodes throughout his life. His mother has Neurofibromatosis. He most likely also has NF with his associated hydrocephalus. No need for ICU monitoring. If patient's clinical status changes please reconsult. Critical Care Time 35 minutes Status: Acute
[2017-04-05 17:55] LABS: VENOUS BLOOD GAS BASE EXCESS -3.1 mmol/L (0.0-2.0); VENOUS BLOOD GAS PCO2 39 mmHg (40-60); VENOUS BLOOD PH 7.36 (7.32-7.43)
--- NOTE | 2017-04-05 18:38 | CT ---
PROCEDURE: CT HEAD WITHOUT CONTRAST. HISTORY: ams COMPARISON: None available. TECHNIQUE: Axial computed tomography images were obtained through the head/brain without intravenous contrast. Radiation dose: Total exam DLP = 862.95 mGy-cm. This CT exam was performed using one or more of the following dose reduction techniques: Automated exposure control, adjustment of the mA and/or kV according to patient size, and/or use of iterative reconstruction technique. FINDINGS: HEMORRHAGE: No intracranial hemorrhage. BRAIN: No mass effect or edema. The hill-white matter differentiation appears intact. Please note that MRI with diffusion imaging is more sensitive in the detection of acute ischemic event. VENTRICLES: Asymmetry of the frontal horns lateral ventricles which appear larger as compared to the occipital horns; may be anatomic variant. No hydronephrosis. CALVARIUM: Postsurgical changes, right frontal calvarium. PARANASAL SINUSES: Unremarkable as visualized. No significant inflammatory changes. MASTOID AIR CELLS: Unremarkable as visualized. No inflammatory changes. OTHER FINDINGS: Patient underwent a CT of the abdomen and pelvis with contrast (earlier the same day) prior to the noncontrast head CT therefore portions of the vasculature demonstrate contrast. IMPRESSION: No acute intracranial pathology identified. Additional findings as above.
[2017-04-05 23:53] VITALS: BMI 16.9
[2017-04-06 05:32] LABS: ALB/GLOB RATIO 1.5 (1.0-2.1); ALKALINE PHOSPHATASE 73 U/L (38-126); ALT/SGPT 34 U/L (21-72); AST/SGOT 24 U/L (17-59); BILIRUBIN,TOTAL 1.5 mg/dl (0.2-1.3); BLOOD UREA NITROGEN 8 mg/dl (9-20); CALCIUM 8.3 mg/dL (8.4-10.2); CARBON DIOXIDE 20 mmol/L (22-30); CHLORIDE 107 mmol/L (98-107); GFR AFRICAN-AMERICAN > 60; GLUCOSE,RANDOM 97 mg/dL (75-110); PHOSPHOROUS 2.7 mg/dl (2.5-4.5); POTASSIUM 3.4 MMOL/L (3.6-5.0); SODIUM 135 mmol/l (132-148); TOTAL PROTEIN 5.7 G/DL (6.3-8.2)
[2017-04-06 05:34] LABS: BASO % 0.3 % (0.0-2.0); EOS % 0.1 % (0.0-4.0); HEMATOCRIT 38.2 % (35.0-51.0); LYMPH # 1.5 K/uL (1.0-4.3); LYMPH % 11.7 % (20.0-40.0); MEAN CELL VOLUME 95.3 fl (80.0-94.0); MEAN CORPUSCULAR HGB CONC 33.6 g/dL (33.0-37.0); MEAN PLATELET VOLUME 11.6 fl (7.2-11.7); MONO % 7.7 % (0.0-10.0); NEUT # 10.1 K/uL (1.8-7.0); NEUT % 80.2 % (50.0-75.0); NRBC % 0.1 % (0.0-0.0); RED CELL DISTRIBUTION WIDTH 12.8 % (11.5-14.5); WHITE BLOOD COUNT 12.5 K/uL (4.8-10.8)
[2017-04-06 06:01] LABS: THYROID STIMULATING HORMONE 1.06 mIU/ML (0.46-4.68)
--- NOTE | 2017-04-06 07:51 | CP.CCUPN ---
CCU Objective - Vital Signs / Intake & Output Vital Signs (Last 4 hours): Vital Signs Temp Pulse Resp BP Pulse Ox 04/06/17 05:00 99 F 90 22 128/38 L 97 04/06/17 04:00 76 21 92/57 L Intake and Output (Last 8hrs): Intake & Output 04/05/17 04/06/17 04/06/17 22:59 06:59 14:59 Intake Total 250 0 Output Total 1000 Balance 250 -1000 Intake: IV 0 Intake, Piggyback 250 Oral 0 0 Output: Urine 1000 Urine, Voided 1000 Other: # Voids Urine, Voided 3 - Medications Active Medications: Active Medications Generic Name Dose Route Start Last Admin Trade Name Freq PRN Reason Stop Dose Admin Potassium Chloride/Dextrose/Sod Cl 1,000 mls @ 126 mls/hr 04/06/17 07:45 Potassium Chl 20 Meq In D5-1/2ns IV 04/06/17 15:41 .[id number] [facility] Ketorolac Tromethamine 30 mg 04/05/17 17:15 Toradol IVP Q6 PRN Pain, Mild (1-3) Morphine Sulfate 2 mg 04/05/17 17:16 Morphine IVP Q6 PRN Pain, moderate (4-7) Morphine Sulfate 4 mg 04/05/17 17:16 Morphine IVP Q6 PRN Pain, severe (8-10) Ondansetron HCl 4 mg 04/05/17 17:46 Zofran Inj IVP Q6 PRN Nausea/Vomiting Pantoprazole Sodium 40 mg 04/05/17 22:00 04/05/17 23:11 Protonix Inj IVP 40 mg HS [facility] Administration - Patient Studies Lab Studies: Lab Studies 04/06/17 04/06/17 04/06/17 Range/Units 04:25 04:25 04:20 WBC 12.5 H (4.8-10.8) K/uL RBC 4.01 L (4.40-5.90) Mil/uL Hgb 12.8 D (12.0-18.0) g/dL Hct 38.2 (35.0-51.0) % MCV 95.3 H (80.0-94.0) fl MCH 32.0 H (27.0-31.0) pg MCHC 33.6 (33.0-37.0) g/dL RDW 12.8 (11.5-14.5) % Plt Count 56 L D (130-400) K/uL MPV 11.6 (7.2-11.7) fl Neut % (Auto) 80.2 H (50.0-75.0) % Lymph % (Auto) 11.7 L (20.0-40.0) % [place] % (Auto) 7.7 (0.0-10.0) % Eos % (Auto) 0.1 (0.0-4.0) % Baso % (Auto) 0.3 (0.0-2.0) % Neut # 10.1 H (1.8-7.0) K/uL Lymph # 1.5 (1.0-4.3) K/uL [place] # 1.0 H (0.0-0.8) K/uL Eos # 0.0 (0.0-0.7) K/uL Baso # 0.0 (0.0-0.2) K/uL pO2 (30-55) mm/Hg VBG pH (7.32-7.43) VBG pCO2 (40-60) mmHg VBG HCO3 mmol/L VBG Total CO2 (22-28) mmol/L VBG O2 Sat (Calc) (40-65) % VBG Base Excess (0.0-2.0) mmol/L VBG Potassium (3.6-5.2) mmol/L Sodium 135 (132-148) mmol/L Chloride 107 (98-107) mmol/L Glucose (75-110) mg/dL Lactate (0.7-2.1) mmol/L FiO2 % Potassium 3.4 L (3.6-5.0) MMOL/L Carbon Dioxide 20 L (22-30) mmol/L Anion Gap 11 (10-20) BUN 8 L (9-20) mg/dl Creatinine 0.8 (0.8-1.5) mg/dL Est GFR ( Amer) > 60 Est GFR (Non-Af Amer) > 60 Random Glucose 97 (75-110) mg/dL Lactic Acid 0.9 (0.7-2.1) MMOL/L Calcium 8.3 L (8.4-10.2) mg/dL Phosphorus 2.7 (2.5-4.5) mg/dl Magnesium 2.0 (1.6-2.3) MG/DL Total Bilirubin 1.5 H (0.2-1.3) mg/dl AST 24 (17-59) U/L ALT 34 (21-72) U/L Alkaline Phosphatase 73 (38-126) U/L Total Protein 5.7 L (6.3-8.2) G/DL Albumin 3.4 L D (3.5-5.0) g/dL Globulin 2.3 (2.2-3.9) gm/dL Albumin/Globulin Ratio 1.5 (1.0-2.1) Prostate Specific Ag (0.00-4.0) ng/ML TSH 3rd Generation 1.06 (0.46-4.68) mIU/ML Venous Blood Potassium (3.6-5.2) mmol/L RPR (NONREACTIVE) HIV-1 Ab Rapid Screen (NON REAC) 04/05/17 04/05/17 04/05/17 Range/Units 20:05 17:50 17:35 WBC (4.8-10.8) K/uL RBC (4.40-5.90) Mil/uL Hgb (12.0-18.0) g/dL Hct (35.0-51.0) % MCV (80.0-94.0) fl MCH (27.0-31.0) pg MCHC (33.0-37.0) g/dL RDW (11.5-14.5) % Plt Count (130-400) K/uL MPV (7.2-11.7) fl Neut % (Auto) (50.0-75.0) % Lymph % (Auto) (20.0-40.0) % [place] % (Auto) (0.0-10.0) % Eos % (Auto) (0.0-4.0) % Baso % (Auto) (0.0-2.0) % Neut # (1.8-7.0) K/uL Lymph # (1.0-4.3) K/uL [place] # (0.0-0.8) K/uL Eos # (0.0-0.7) K/uL Baso # (0.0-0.2) K/uL pO2 30 (30-55) mm/Hg VBG pH 7.36 (7.32-7.43) VBG pCO2 39 L (40-60) mmHg VBG HCO3 21.3 mmol/L VBG Total CO2 23.2 (22-28) mmol/L VBG O2 Sat (Calc) 66.8 H (40-65) % VBG Base Excess -3.1 L (0.0-2.0) mmol/L VBG Potassium 3.6 (3.6-5.2) mmol/L Sodium 132.0 (132-148) mmol/L Chloride 103.0 (98-107) mmol/L Glucose 108 (75-110) mg/dL Lactate 2.0 (0.7-2.1) mmol/L FiO2 21.0 % Potassium (3.6-5.0) MMOL/L Carbon Dioxide (22-30) mmol/L Anion Gap (10-20) BUN (9-20) mg/dl Creatinine (0.8-1.5) mg/dL Est GFR ( Amer) Est GFR (Non-Af Amer) Random Glucose (75-110) mg/dL Lactic Acid (0.7-2.1) MMOL/L Calcium (8.4-10.2) mg/dL Phosphorus (2.5-4.5) mg/dl Magnesium (1.6-2.3) MG/DL Total Bilirubin (0.2-1.3) mg/dl AST (17-59) U/L ALT (21-72) U/L Alkaline Phosphatase (38-126) U/L Total Protein (6.3-8.2) G/DL Albumin (3.5-5.0) g/dL Globulin (2.2-3.9) gm/dL Albumin/Globulin Ratio (1.0-2.1) Prostate Specific Ag 1.54 (0.00-4.0) ng/ML TSH 3rd Generation (0.46-4.68) mIU/ML Venous Blood Potassium 3.6 (3.6-5.2) mmol/L RPR Nonreactive (NONREACTIVE) HIV-1 Ab Rapid Screen (NON REAC) 04/05/17 Range/Units 17:35 WBC (4.8-10.8) K/uL RBC (4.40-5.90) Mil/uL Hgb (12.0-18.0) g/dL Hct (35.0-51.0) % MCV (80.0-94.0) fl MCH (27.0-31.0) pg MCHC (33.0-37.0) g/dL RDW (11.5-14.5) % Plt Count (130-400) K/uL MPV (7.2-11.7) fl Neut % (Auto) (50.0-75.0) % Lymph % (Auto) (20.0-40.0) % [place] % (Auto) (0.0-10.0) % Eos % (Auto) (0.0-4.0) % Baso % (Auto) (0.0-2.0) % Neut # (1.8-7.0) K/uL Lymph # (1.0-4.3) K/uL [place] # (0.0-0.8) K/uL Eos # (0.0-0.7) K/uL Baso # (0.0-0.2) K/uL pO2 (30-55) mm/Hg VBG pH (7.32-7.43) VBG pCO2 (40-60) mmHg VBG HCO3 mmol/L VBG Total CO2 (22-28) mmol/L VBG O2 Sat (Calc) (40-65) % VBG Base Excess (0.0-2.0) mmol/L VBG Potassium (3.6-5.2) mmol/L Sodium (132-148) mmol/L Chloride (98-107) mmol/L Glucose (75-110) mg/dL Lactate (0.7-2.1) mmol/L FiO2 % Potassium (3.6-5.0) MMOL/L Carbon Dioxide (22-30) mmol/L Anion Gap (10-20) BUN (9-20) mg/dl Creatinine (0.8-1.5) mg/dL Est GFR ( Amer) Est GFR (Non-Af Amer) Random Glucose (75-110) mg/dL Lactic Acid (0.7-2.1) MMOL/L Calcium (8.4-10.2) mg/dL Phosphorus (2.5-4.5) mg/dl Magnesium (1.6-2.3) MG/DL Total Bilirubin (0.2-1.3) mg/dl AST (17-59) U/L ALT (21-72) U/L Alkaline Phosphatase (38-126) U/L Total Protein (6.3-8.2) G/DL Albumin (3.5-5.0) g/dL Globulin (2.2-3.9) gm/dL Albumin/Globulin Ratio (1.0-2.1) Prostate Specific Ag (0.00-4.0) ng/ML TSH 3rd Generation (0.46-4.68) mIU/ML Venous Blood Potassium (3.6-5.2) mmol/L RPR (NONREACTIVE) HIV-1 Ab Rapid Screen Non reactive (NON REAC) Laboratory Results - last 24 hr 04/05/17 04/05/17 04/05/17 17:35 17:35 17:50 WBC RBC Hgb Hct MCV MCH MCHC RDW Plt Count MPV Neut % (Auto) Lymph % (Auto) [place] % (Auto) Eos % (Auto) Baso % (Auto) Neut # Lymph # [place] # Eos # Baso # pO2 30 VBG pH 7.36 VBG pCO2 39 L VBG HCO3 21.3 VBG Total CO2 23.2 VBG O2 Sat (Calc) 66.8 H VBG Base Excess -3.1 L VBG Potassium 3.6 Sodium 132.0 Chloride 103.0 Glucose 108 Lactate 2.0 FiO2 21.0 Potassium Carbon Dioxide Anion Gap BUN Creatinine Est GFR ( Amer) Est GFR (Non-Af Amer) Random Glucose Lactic Acid Calcium Phosphorus Magnesium Total Bilirubin AST ALT Alkaline Phosphatase Total Protein Albumin Globulin Albumin/Globulin Ratio Prostate Specific Ag TSH 3rd Generation Venous Blood Potassium 3.6 RPR Nonreactive HIV-1 Ab Rapid Screen Non reactive 04/05/17 04/06/17 04/06/17 20:05 04:20 04:25 WBC 12.5 H RBC 4.01 L Hgb 12.8 D Hct 38.2 MCV 95.3 H MCH 32.0 H MCHC 33.6 RDW 12.8 Plt Count 56 L D MPV 11.6 Neut % (Auto) 80.2 H Lymph % (Auto) 11.7 L [place] % (Auto) 7.7 Eos % (Auto) 0.1 Baso % (Auto) 0.3 Neut # 10.1 H Lymph # 1.5 [place] # 1.0 H Eos # 0.0 Baso # 0.0 pO2 VBG pH VBG pCO2 VBG HCO3 VBG Total CO2 VBG O2 Sat (Calc) VBG Base Excess VBG Potassium Sodium 135 Chloride 107 Glucose Lactate FiO2 Potassium 3.4 L Carbon Dioxide 20 L Anion Gap 11 BUN 8 L Creatinine 0.8 Est GFR ( Amer) > 60 Est GFR (Non-Af Amer) > 60 Random Glucose 97 Lactic Acid Calcium 8.3 L Phosphorus 2.7 Magnesium 2.0 Total Bilirubin 1.5 H AST 24 ALT 34 Alkaline Phosphatase 73 Total Protein 5.7 L Albumin 3.4 L D Globulin 2.3 Albumin/Globulin Ratio 1.5 Prostate Specific Ag 1.54 TSH 3rd Generation 1.06 Venous Blood Potassium RPR HIV-1 Ab Rapid Screen 04/06/17 04:25 WBC RBC Hgb Hct MCV MCH MCHC RDW Plt Count MPV Neut % (Auto) Lymph % (Auto) [place] % (Auto) Eos % (Auto) Baso % (Auto) Neut # Lymph # [place] # Eos # Baso # pO2 VBG pH VBG pCO2 VBG HCO3 VBG Total CO2 VBG O2 Sat (Calc) VBG Base Excess VBG Potassium Sodium Chloride Glucose Lactate FiO2 Potassium Carbon Dioxide Anion Gap BUN Creatinine Est GFR ( Amer) Est GFR (Non-Af Amer) Random Glucose Lactic Acid 0.9 Calcium Phosphorus Magnesium Total Bilirubin AST ALT Alkaline Phosphatase Total Protein Albumin Globulin Albumin/Globulin Ratio Prostate Specific Ag TSH 3rd Generation Venous Blood Potassium RPR HIV-1 Ab Rapid Screen Critical Care Progress Note - Nutrition Nutrition: Nutrition Category Date Time Status NPO Diet [DIET] Diets 04/05/17 Dinner Active
[2017-04-06] MEDS: Potassium Ch 20mEq in D5-1/2NS 1,000 ML IV SCH ×2 (09:28→17:00)
--- NOTE | 2017-04-06 09:38 | CP.PCM.PN ---
Subjective - Date & Time of Evaluation Date of Evaluation: 04/06/17 Time of Evaluation: 07:00 - Subjective Subjective: Patient seen and examined in ICU this morning. patient still c/o RUQ and RLQ abdominal pain, however improving Denies Cp, Cough, chills, SOB, N/V at this evaluations Had one low grade fever of 99.7 F at midnight No events overnight Objective - Vital Signs/Intake and Output Vital Signs (last 24 hours): Temp Pulse Resp BP Pulse Ox 99.4 F 78 23 106/63 99 04/06/17 08:00 04/06/17 08:00 04/06/17 08:00 04/06/17 08:00 04/06/17 08:00 Intake and Output: 04/06/17 04/06/17 06:59 18:59 Intake Total 250 Output Total 1000 Balance -750 - Medications Medications: Current Medications Potassium Chloride/Dextrose/Sod Cl (Potassium Chl 20 Meq In D5-1/2ns) 1,000 mls @ 126 mls/hr IV .[id number] [facility] Stop: 04/06/17 15:41 Last Admin: 04/06/17 09:28 Dose: 126 mls/hr Ketorolac Tromethamine (Toradol) 30 mg IVP Q6 PRN PRN Reason: Pain, Mild (1-3) Morphine Sulfate (Morphine) 2 mg IVP Q6 PRN PRN Reason: Pain, moderate (4-7) Morphine Sulfate (Morphine) 4 mg IVP Q6 PRN PRN Reason: Pain, severe (8-10) Ondansetron HCl (Zofran Inj) 4 mg IVP Q6 PRN PRN Reason: Nausea/Vomiting Pantoprazole Sodium (Protonix Inj) 40 mg IVP [facility] Last Admin: 04/05/17 23:11 Dose: 40 mg - Labs Labs: 04/06/17 04:25 04/06/17 04:20 PT 10.5 Seconds (9.8-13.1) 04/05/17 15:25 INR 1.0 (0.9-1.2) 04/05/17 15:25 APTT 29.2 Seconds (25.6-37.1) 04/05/17 15:25 - Constitutional Appears: No Acute Distress - ENT Exam ENT Exam: Mucous Membranes Moist - Respiratory Exam Respiratory Exam: Clear to Ausculation Bilateral, NORMAL BREATHING PATTERN - Cardiovascular Exam Cardiovascular Exam: REGULAR RHYTHM, +S1, +S2 - GI/Abdominal Exam GI & Abdominal Exam: Soft, Tenderness (RUQ and RLQ, no rebound tenderness noted) . absent: Distended, Guarding - Extremities Exam Extremities Exam: Normal Inspection. absent: Calf Tenderness, Pedal Edema - Neurological Exam Neurological Exam: Alert, Awake, Oriented x3 Assessment and Plan - Assessment and Plan (Free Text) Assessment: 46 y/o M with PMHx that includes Asthma otherwise unspecified, Scoliosis, Hydrocephalus ( s/p shunt 3-4 years ago), Peptic ulcer, Depression, Hemorrhoids , Tremors? admitted with sepsis. Plan: Sepsis ? improving unclear etiology 3 Systemic Inflammatory Response Syndrome criteria on admission, questionable sepsis at this time, improving in no antibiotics -transfer to tele -Procalcitonin WNL -CBC: WBC: trending down 12.5 -Lactic acid today 0.9 -BUN/Cr:13.0/0.8, GFR: >60 -consider DC IV fluids if tolerates PO -advance to liquid diet -f/u Blood Cx -f/u CBC, BMP -Urine Cx negative -Head CT: showed no acute intracraneal pathology -CXR: showed evidence of acute interstitial/atypical/viral pneumonitis -s/p Vanco 1 gm IVP once, Zosyn 4.5 gm IV -HIV/ RPR: non reactive Abdominal pain improving, but still present, unclear etiology Gastritis vs Viral gastroenteritis ? -no N/V after admission -advance diet to liquids c/w protonix 40 mg IV -UA positive for small blood -c/w pain control -zofran PRN for nausea GI consult appreciated, f/u recommendations -Abdominal CT scan showed no acute or pelvic abnormality, no evidence of acute appendicitis or bowel obstruction. Moderate enlargement of prostate. Mild mural thickening of urinary bladder wall. Thrombocytopenia -Plt: 77 unclear etiology, but patient's plt have been running low between 70s-80s since 2014 Consider Hemo consult h/o Depression -reports depressed mood for 2 weeks -denies suicidal/homicidal ideation -no in any home medications -Start Mirtazapine 30 mg if tolerates PO -consider Psych consult Underweight BMI : 17.0 h/o Asthma otherwise unspecified -asymptomatic -in no home meds DVT prophylaxis SCDs for now No anticoagulants /Low platelets
[2017-04-06] MEDS: Nystatin 100,000 Units/ml Oral Susp 5 ml UD PO SCH ×2 (12:00→15:59)
[2017-04-06 12:38] LABS: IRON 84 ug/dL (49-181)
[2017-04-06] MEDS ORDERED: Multivitamin (MVI) 10 ML, Thiamine 100 MG, Folic Acid 1 MG in Sodium Chloride 0.9% 1,00... IV ONE (15:55)
--- NOTE | 2017-04-06 15:59 | CP.PCM.CON ---
History of Present Illness - History of Present Illness History of Present Illness: 46 yo male coming to ER for right sided abdominal pain that had started the day before. States he has been losing weight for past couple of months. He states that he uses marijuana and alcohol ocasionally. The paramedics however state he has h/o heroin abuse. Upper endoscopy and colonoscopy were done in 2014 and essentially negative. When he was first seen in the ER had high lactate level and WBCs but those have since improved. Review of Systems - Constitutional Constitutional: absent: Chills - EENT Eyes: absent: Blurred Vision Ears: absent: Decreased Hearing Nose/Mouth/Throat: absent: Epistaxis - Cardiovascular Cardiovascular: absent: Chest Pain - Respiratory Respiratory: absent: Dyspnea - Gastrointestinal Gastrointestinal: Abdominal Pain - Genitourinary Genitourinary: absent: Change in Urinary Stream Past Patient History - Past Medical History & Family History Past Medical History?: Yes - Past Social History Smoking Status: Light Smoker < 10 Cigarettes Daily - CARDIAC Hx Cardiac Disorders: No - PULMONARY Hx Respiratory Disorders: Yes Hx Asthma: Yes - NEUROLOGICAL Hx Neurological Disorder: Yes Hx Migraine: Yes Other/Comment: hydrocephalus-had surgery yrs ago - HEENT Hx HEENT Problems: No - RENAL Hx Chronic Kidney Disease: No - ENDOCRINE/METABOLIC Hx Endocrine Disorders: No - HEMATOLOGICAL/ONCOLOGICAL Hx Blood Disorders: Yes Hx AIDS: No Hx Anemia: Yes Hx Human Immunodeficiency Virus (HIV): No - INTEGUMENTARY Hx Dermatological Problems: No - MUSCULOSKELETAL/RHEUMATOLOGICAL Hx Musculoskeletal Disorders: No Hx Falls: No - GASTROINTESTINAL Hx Gastrointestinal Disorders: Yes Hx Irritable Bowel: Yes - GENITOURINARY/GYNECOLOGICAL Hx Genitourinary Disorders: No - PSYCHIATRIC Hx Psychophysiologic Disorder: Yes Hx Depression: Yes Hx Substance Use: Yes (marijuana at times) - SURGICAL HISTORY Hx Surgeries: Yes (CRAINIOTOMY W/ SHUNT & PLATE) - ANESTHESIA Hx Anesthesia: Yes Hx Anesthesia Reactions: No Hx Malignant Hyperthermia: No Meds Allergies/Adverse Reactions: Allergies Allergy/AdvReac Type Severity Reaction Status Date / Time No Known Allergies Allergy Verified 10/26/16 18:14 - Medications Medications: Current Medications Ketorolac Tromethamine (Toradol) 30 mg IVP Q6 PRN PRN Reason: Pain, Mild (1-3) Morphine Sulfate (Morphine) 2 mg IVP Q6 PRN PRN Reason: Pain, moderate (4-7) Last Admin: 04/06/17 09:58 Dose: 2 mg Morphine Sulfate (Morphine) 4 mg IVP Q6 PRN PRN Reason: Pain, severe (8-10) Nystatin (Nystatin Oral Susp) 5 ml PO QID [facility] Last Admin: 04/06/17 12:00 Dose: 5 ml Ondansetron HCl (Zofran Inj) 4 mg IVP Q6 PRN PRN Reason: Nausea/Vomiting Pantoprazole Sodium (Protonix Inj) 40 mg IVP HS [facility] Last Admin: 04/05/17 23:11 Dose: 40 mg Physical Exam - Constitutional Appears: No Acute Distress - Head Exam Head Exam: NORMAL INSPECTION - Eye Exam Eye Exam: Normal appearance - Neck Exam Neck exam: Positive for: Normal Inspection - Respiratory Exam Respiratory Exam: Clear to Auscultation Bilateral - Cardiovascular Exam Cardiovascular Exam: REGULAR RHYTHM - GI/Abdominal Exam GI & Abdominal Exam: Normal Bowel Sounds, Soft, Tenderness Additional comments: moderate periumbillical tenderness Results - Vital Signs Recent Vital Signs: Last Vital Signs Temp 99.3 F 04/06/17 12:29 Pulse 82 04/06/17 12:29 Resp 17 04/06/17 12:29 BP 104/62 04/06/17 12:29 Pulse Ox 99 04/06/17 12:29 - Labs Result Diagrams: 04/06/17 04:25 04/06/17 04:20 Labs: Laboratory Results - last 24 hr 04/05/17 04/05/17 04/05/17 17:35 17:35 17:50 WBC RBC Hgb Hct MCV MCH MCHC RDW Plt Count MPV Neut % (Auto) Lymph % (Auto) [place] % (Auto) Eos % (Auto) Baso % (Auto) Neut # Lymph # [place] # Eos # Baso # pO2 30 VBG pH 7.36 VBG pCO2 39 L VBG HCO3 21.3 VBG Total CO2 23.2 VBG O2 Sat (Calc) 66.8 H VBG Base Excess -3.1 L VBG Potassium 3.6 Sodium 132.0 Chloride 103.0 Glucose 108 Lactate 2.0 FiO2 21.0 Potassium Carbon Dioxide Anion Gap BUN Creatinine Est GFR ( Amer) Est GFR (Non-Af Amer) Random Glucose Lactic Acid Calcium Phosphorus Magnesium Iron TIBC % Saturation Ferritin Total Bilirubin AST ALT Alkaline Phosphatase Total Protein Albumin Globulin Albumin/Globulin Ratio Prostate Specific Ag Vitamin B12 Procalcitonin TSH 3rd Generation Venous Blood Potassium 3.6 RPR Nonreactive HIV-1 Ab Rapid Screen Non reactive 04/05/17 04/05/17 04/06/17 20:05 20:05 04:20 WBC RBC Hgb Hct MCV MCH MCHC RDW Plt Count MPV Neut % (Auto) Lymph % (Auto) [place] % (Auto) Eos % (Auto) Baso % (Auto) Neut # Lymph # [place] # Eos # Baso # pO2 VBG pH VBG pCO2 VBG HCO3 VBG Total CO2 VBG O2 Sat (Calc) VBG Base Excess VBG Potassium Sodium 135 Chloride 107 Glucose Lactate FiO2 Potassium 3.4 L Carbon Dioxide 20 L Anion Gap 11 BUN 8 L Creatinine 0.8 Est GFR ( Amer) > 60 Est GFR (Non-Af Amer) > 60 Random Glucose 97 Lactic Acid Calcium 8.3 L Phosphorus 2.7 Magnesium 2.0 Iron TIBC % Saturation Ferritin Total Bilirubin 1.5 H AST 24 ALT 34 Alkaline Phosphatase 73 Total Protein 5.7 L Albumin 3.4 L D Globulin 2.3 Albumin/Globulin Ratio 1.5 Prostate Specific Ag 1.54 Vitamin B12 Procalcitonin < 0.05 L TSH 3rd Generation 1.06 Venous Blood Potassium RPR HIV-1 Ab Rapid Screen 04/06/17 04/06/17 04/06/17 04:25 04:25 05:00 WBC 12.5 H RBC 4.01 L Hgb 12.8 D Hct 38.2 MCV 95.3 H MCH 32.0 H MCHC 33.6 RDW 12.8 Plt Count 56 L D MPV 11.6 Neut % (Auto) 80.2 H Lymph % (Auto) 11.7 L [place] % (Auto) 7.7 Eos % (Auto) 0.1 Baso % (Auto) 0.3 Neut # 10.1 H Lymph # 1.5 [place] # 1.0 H Eos # 0.0 Baso # 0.0 pO2 VBG pH VBG pCO2 VBG HCO3 VBG Total CO2 VBG O2 Sat (Calc) VBG Base Excess VBG Potassium Sodium Chloride Glucose Lactate FiO2 Potassium Carbon Dioxide Anion Gap BUN Creatinine Est GFR ( Amer) Est GFR (Non-Af Amer) Random Glucose Lactic Acid 0.9 Calcium Phosphorus Magnesium Iron TIBC % Saturation Ferritin 60.5 Total Bilirubin AST ALT Alkaline Phosphatase Total Protein Albumin Globulin Albumin/Globulin Ratio Prostate Specific Ag Vitamin B12 234 L Procalcitonin TSH 3rd Generation Venous Blood Potassium RPR HIV-1 Ab Rapid Screen 04/06/17 05:00 WBC RBC Hgb Hct MCV MCH MCHC RDW Plt Count MPV Neut % (Auto) Lymph % (Auto) [place] % (Auto) Eos % (Auto) Baso % (Auto) Neut # Lymph # [place] # Eos # Baso # pO2 VBG pH VBG pCO2 VBG HCO3 VBG Total CO2 VBG O2 Sat (Calc) VBG Base Excess VBG Potassium Sodium Chloride Glucose Lactate FiO2 Potassium Carbon Dioxide Anion Gap BUN Creatinine Est GFR ( Amer) Est GFR (Non-Af Amer) Random Glucose Lactic Acid Calcium Phosphorus Magnesium Iron 84 TIBC 266 % Saturation 32 Ferritin Total Bilirubin AST ALT Alkaline Phosphatase Total Protein Albumin Globulin Albumin/Globulin Ratio Prostate Specific Ag Vitamin B12 Procalcitonin TSH 3rd Generation Venous Blood Potassium RPR HIV-1 Ab Rapid Screen Assessment & Plan (1) Abdominal pain Assessment and Plan: Cause of abdominal pain unclear. CT scan when admitted failed to show evidence of mesenteric ischemia. Drug screen was negative when admitted though newer synthetic agents or opiate withdrawal cannot be excluded. Low platelets may be due to low B12. Will get CRP quant, amylase, and follow clinically. Try controlling pain with nonopiates. Will check amylase and CRP and follow with you Status: Acute
[2017-04-06 18:01] LABS: FOLATE 7.8 ng/mL
[2017-04-06] MEDS ORDERED: Pneumococcal 23-Valent Vaccine IM ONE (18:18)
[2017-04-07] MEDS: Nystatin 100,000 Units/ml Oral Susp 5 ml UD PO SCH ×3 (00:45→12:41)
[2017-04-07 06:46] LABS: HEMATOCRIT 39.7 % (35.0-51.0); MEAN CELL VOLUME 95.7 fl (80.0-94.0); MEAN CORPUSCULAR HEMOGLOBIN 32.6 pg (27.0-31.0); RED CELL DISTRIBUTION WIDTH 12.9 % (11.5-14.5)
[2017-04-07 07:03] LABS: AMYLASE 78 U/L (30-110); BLOOD UREA NITROGEN 5 mg/dl (9-20); CALCIUM 8.7 mg/dL (8.4-10.2); CARBON DIOXIDE 26 mmol/L (22-30); CHLORIDE 105 mmol/L (98-107); GFR AFRICAN-AMERICAN > 60; GLUCOSE,RANDOM 102 mg/dL (75-110); SODIUM 137 mmol/l (132-148)
[2017-04-07 07:06] LABS: POTASSIUM 3.9 MMOL/L (3.6-5.0)
--- NOTE | 2017-04-07 10:37 | CP.PCM.PN ---
Subjective - Date & Time of Evaluation Date of Evaluation: 04/07/17 Time of Evaluation: 07:05 - Subjective Subjective: Patient seen and examined in telemetry unit this morning. Patient feeling a " little bit" better than yesterday, still c/o diffuse abdominal pain, however improving Denies Cp, SOB, N/V, diarrheas. Last BM was this morning and reported as soft w/ o blood in it. Tolerating PO since yesterday Objective - Vital Signs/Intake and Output Vital Signs (last 24 hours): Temp Pulse Resp BP Pulse Ox 98.8 F 60 18 101/60 98 04/07/17 08:20 04/07/17 08:20 04/07/17 08:20 04/07/17 08:20 04/07/17 08:20 - Medications Medications: Current Medications Acetaminophen (Tylenol 325mg Tab) 650 mg PO Q4 PRN PRN Reason: Pain, Mild (1-3) Cyanocobalamin (Vitamin B12 1000 Mcg/Ml Inj) 1,000 mcg IM DAILY [facility] Last Admin: 04/07/17 10:05 Dose: 1,000 mcg Ketorolac Tromethamine (Toradol) 30 mg IVP Q6 PRN PRN Reason: Pain, moderate (4-7) Nystatin (Nystatin Oral Susp) 5 ml PO QID [facility] Last Admin: 04/07/17 10:04 Dose: 5 ml Ondansetron HCl (Zofran Inj) 4 mg IVP Q6 PRN PRN Reason: Nausea/Vomiting Pantoprazole Sodium (Protonix Inj) 40 mg IVP [facility] Last Admin: 04/06/17 22:28 Dose: 40 mg - Labs Labs: 04/07/17 05:00 04/07/17 05:00 PT 10.5 Seconds (9.8-13.1) 04/05/17 15:25 INR 1.0 (0.9-1.2) 04/05/17 15:25 APTT 29.2 Seconds (25.6-37.1) 04/05/17 15:25 - Constitutional Appears: No Acute Distress - ENT Exam ENT Exam: Mucous Membranes Moist - Respiratory Exam Respiratory Exam: Clear to Ausculation Bilateral, NORMAL BREATHING PATTERN - Cardiovascular Exam Cardiovascular Exam: REGULAR RHYTHM, +S1, +S2 - GI/Abdominal Exam GI & Abdominal Exam: Soft, Tenderness (involuntary muscle contraction noted. Mild tender to palpation of right upper/lower qu), Normal Bowel Sounds - Neurological Exam Neurological Exam: Alert, Awake, Oriented x3
[2017-04-07 15:39] VITALS: BP 103/62; PULSE 68; RESP 20; TEMP 99; O2SAT 99
--- NOTE | 2017-04-07 19:36 | CP.PCM.DIS ---
Provider - Provider Date of Admission: 04/05/17 16:19 Attending physician: Mariposa Fernandez MD Consults: GI consulted, Dr. Landrum Time Spent in preparation of Discharge (in minutes): 30 Diagnosis - Discharge Diagnosis (1) Sepsis Status: Acute Comment: ruled out, work up neg for sepsis, improved without antibiotics (2) Abdominal pain Status: Acute Comment: unclear etiology, improved during admission. F/u with PMD at [facility]. (3) Thrombocytopenia Status: Chronic Comment: f/u with PMD. Consider Hemo consult as outpatient (4) History of depression Status: Chronic Comment: started on Mirtazapine. F/u with PMD. Could benefit of Psych referral (5) Underweight Status: Chronic Comment: BMI: 17. F/u with PMD (6) History of asthma Status: Chronic Comment: asymptomatic and in no treatment. Otherwise unspecified. Hospital Course - Lab Results Lab Results: Micro Results 04/05/17 20:05 Blood Blood Culture - Preliminary NO GROWTH AFTER 24 HOURS Most Recent Lab Values WBC 8.0 K/uL (4.8-10.8) 04/07/17 05:00 RBC 4.15 Mil/uL (4.40-5.90) L 04/07/17 05:00 Hgb 13.5 g/dL (12.0-18.0) 04/07/17 05:00 Hct 39.7 % (35.0-51.0) 04/07/17 05:00 MCV 95.7 fl (80.0-94.0) H 04/07/17 05:00 MCH 32.6 pg (27.0-31.0) H 04/07/17 05:00 MCHC 34.0 g/dL (33.0-37.0) 04/07/17 05:00 RDW 12.9 % (11.5-14.5) 04/07/17 05:00 Plt Count 61 K/uL (130-400) L 04/07/17 05:00 MPV 11.6 fl (7.2-11.7) 04/06/17 04:25 Neut % (Auto) 80.2 % (50.0-75.0) H 04/06/17 04:25 Lymph % (Auto) 11.7 % (20.0-40.0) L 04/06/17 04:25 [place] % (Auto) 7.7 % (0.0-10.0) 04/06/17 04:25 Eos % (Auto) 0.1 % (0.0-4.0) 04/06/17 04:25 Baso % (Auto) 0.3 % (0.0-2.0) 04/06/17 04:25 Neut # 10.1 K/uL (1.8-7.0) H 04/06/17 04:25 Lymph # 1.5 K/uL (1.0-4.3) 04/06/17 04:25 [place] # 1.0 K/uL (0.0-0.8) H 04/06/17 04:25 Eos # 0.0 K/uL (0.0-0.7) 04/06/17 04:25 Baso # 0.0 K/uL (0.0-0.2) 04/06/17 04:25 Neutrophils % (Manual) 91 % (42-75) H 04/05/17 14:00 Lymphocytes % (Manual) 3 % (20-50) L 04/05/17 14:00 Monocytes % (Manual) 6 % (0-10) 04/05/17 14:00 Platelet Estimate Normal (NORMAL) 04/05/17 14:00 RBC Morphology Normal (NORMAL) 04/05/17 14:00 PT 10.5 Seconds (9.8-13.1) 04/05/17 15:25 INR 1.0 (0.9-1.2) 04/05/17 15:25 APTT 29.2 Seconds (25.6-37.1) 04/05/17 15:25 pO2 30 mm/Hg (30-55) 04/05/17 17:50 VBG pH 7.36 (7.32-7.43) 04/05/17 17:50 VBG pCO2 39 mmHg (40-60) L 04/05/17 17:50 VBG HCO3 21.3 mmol/L 04/05/17 17:50 VBG Total CO2 23.2 mmol/L (22-28) 04/05/17 17:50 VBG O2 Sat (Calc) 66.8 % (40-65) H 04/05/17 17:50 VBG Base Excess -3.1 mmol/L (0.0-2.0) L 04/05/17 17:50 VBG Potassium 3.6 mmol/L (3.6-5.2) 04/05/17 17:50 Sodium 132.0 mmol/L (132-148) 04/05/17 17:50 Chloride 103.0 mmol/L (98-107) 04/05/17 17:50 Glucose 108 mg/dL (75-110) 04/05/17 17:50 Lactate 2.0 mmol/L (0.7-2.1) 04/05/17 17:50 FiO2 21.0 % 04/05/17 17:50 Blood Gas Comments Vbg 04/05/17 14:22 Crit Value Called To Nigel duran r.n. 04/05/17 14:22 Crit Value Called By Sharmin 04/05/17 14:22 Crit Value Read Back Y 04/05/17 14:22 Blood Gas Notified Time 1440 04/05/17 14:22 Sodium 137 mmol/l (132-148) 04/07/17 05:00 Potassium 3.9 MMOL/L (3.6-5.0) 04/07/17 05:00 Chloride 105 mmol/L (98-107) 04/07/17 05:00 Carbon Dioxide 26 mmol/L (22-30) 04/07/17 05:00 Anion Gap 10 (10-20) 04/07/17 05:00 BUN 5 mg/dl (9-20) L 04/07/17 05:00 Creatinine 0.6 mg/dL (0.8-1.5) L 04/07/17 05:00 Est GFR ( Amer) > 60 04/07/17 05:00 Est GFR (Non-Af Amer) > 60 04/07/17 05:00 Random Glucose 102 mg/dL (75-110) 04/07/17 05:00 Lactic Acid 0.9 MMOL/L (0.7-2.1) 04/06/17 04:25 Calcium 8.7 mg/dL (8.4-10.2) 04/07/17 05:00 Phosphorus 2.7 mg/dl (2.5-4.5) 04/06/17 04:20 Magnesium 2.0 MG/DL (1.6-2.3) 04/06/17 04:20 Iron 84 ug/dL (49-181) 04/06/17 05:00 TIBC 266 ug/dL (250-450) 04/06/17 05:00 % Saturation 32 % (20-55) 04/06/17 05:00 Ferritin 60.5 ng/mL 04/06/17 05:00 Total Bilirubin 1.5 mg/dl (0.2-1.3) H 04/06/17 04:20 AST 24 U/L (17-59) 04/06/17 04:20 ALT 34 U/L (21-72) 04/06/17 04:20 Alkaline Phosphatase 73 U/L (38-126) 04/06/17 04:20 Total Creatine Kinase 238 U/L (55-170) H 04/05/17 14:00 Troponin I < 0.0120 ng/mL (0.00-0.120) 04/05/17 14:00 C-React Prot High Sens > 15.00 mg/L (1.00-3.00) H 04/07/17 05:00 Total Protein 5.7 G/DL (6.3-8.2) L 04/06/17 04:20 Albumin 3.4 g/dL (3.5-5.0) L D 04/06/17 04:20 Globulin 2.3 gm/dL (2.2-3.9) 04/06/17 04:20 Albumin/Globulin Ratio 1.5 (1.0-2.1) 04/06/17 04:20 Amylase 78 U/L (30-110) 04/07/17 05:00 Lipase 21 U/L (23-300) L 04/05/17 14:00 Prostate Specific Ag 1.54 ng/ML (0.00-4.0) 04/05/17 20:05 Vitamin B12 234 pg/mL (239-931) L 04/06/17 05:00 Folate 7.8 ng/mL 04/06/17 05:00 Procalcitonin < 0.05 NG/ML (0.19-0.49) L 04/05/17 20:05 TSH 3rd Generation 1.06 mIU/ML (0.46-4.68) 04/06/17 04:20 Venous Blood Potassium 3.6 mmol/L (3.6-5.2) 04/05/17 17:50 Urine Color Straw (YELLOW) 04/05/17 14:00 Urine Clarity Clear (Clear) 04/05/17 14:00 Urine pH 6.0 (5.0-8.0) 04/05/17 14:00 Ur Specific [place] 1.017 (1.003-1.030) 04/05/17 14:00 Urine Protein 30 mg/dL (NEGATIVE) 04/05/17 14:00 Urine Glucose (UA) Neg mg/dL (Normal) 04/05/17 14:00 Urine Ketones Negative mg/dL (NEGATIVE) 04/05/17 14:00 Urine Blood Small (NEGATIVE) 04/05/17 14:00 Urine Nitrate Negative (NEGATIVE) 04/05/17 14:00 Urine Bilirubin Negative (NEGATIVE) 04/05/17 14:00 Urine Urobilinogen 0.2-1.0 mg/dL (0.2-1.0) 04/05/17 14:00 Ur Leukocyte Esterase Neg [place]/uL (Negative) 04/05/17 14:00 Urine RBC (Auto) 4 /hpf (0-3) H 04/05/17 14:00 Urine Microscopic WBC 1 /hpf (0-5) 04/05/17 14:00 Urine Bacteria Rare (<OCC) 04/05/17 14:00 Urine Opiates Screen Negative (NEGATIVE) 04/05/17 14:05 Urine Methadone Screen Negative (NEGATIVE) 04/05/17 14:05 Ur Barbiturates Screen Negative (NEGATIVE) 04/05/17 14:05 Ur Phencyclidine Scrn Negative (NEGATIVE) 04/05/17 14:05 Ur Amphetamines Screen Negative (NEGATIVE) 04/05/17 14:05 U Benzodiazepines Scrn Negative (NEGATIVE) 04/05/17 14:05 U Oth Cocaine Metabols Negative (NEGATIVE) 04/05/17 14:05 U Cannabinoids Screen Positive (NEGATIVE) H 04/05/17 14:05 Alcohol, Quantitative < 10 mg/dl (0-10) 04/05/17 14:00 RPR Nonreactive (NONREACTIVE) 04/05/17 17:35 HIV-1 Ab Rapid Screen Non reactive (NON REAC) 04/05/17 17:35 - Hospital Course Hospital Course: 46 y/o M with PMHx that includes Asthma otherwise unspecified, Scoliosis, Hydrocephalus ?( s/p shunt 3-4 years ago), Peptic ulcer, Depression, Hemorrhoids , Tremors? admitted initially for sepsis with unclear etiology and abdominal pain with PO intolerance. CXR: showed evidence of acute interstitial/atypical/ viral pneumonitis. CT scan showed no acute or pelvic abnormality, no evidence of acute appendicitis or bowel obstruction, moderate enlargement of prostate, mild mural thickening of urinary bladder wall. During admission patient was afebrile, leukocytosis resolved without antibiotic treatment, cultures after 48 hours negative. Patient improved clinically, and started tolerated PO since yesterday afternoon. GI was consulted for unclear etiology of the abdominal pain , and specific labs pending. Patient was found to have a thrombocytopenia of unclear etiology, but patient's plt has had low platelets between 70s-80s since 2014. Will f/u in our center for pending labs review, and further management of chronic medical condition. Also patient found to have depressed mood, anhedonia , without suicidal and/or homicidal ideation.Started on Mirtazapine PO. Home medications Mirtazapine 30 mg po HS. New/ started on this admission - Date & Time of H&P Date of H&P: 04/05/17 Time of H&P: 16:30 Discharge Exam - Head Exam Head Exam: NORMAL INSPECTION - Eye Exam Eye Exam: Normal appearance - ENT Exam ENT Exam: Mucous Membranes Moist - Respiratory Exam Respiratory Exam: Clear to PA & Lateral, NORMAL BREATHING PATTERN. absent: Chest Wall Tenderness, Rales, Rhonchi, Wheezes - Cardiovascular Exam Cardiovascular Exam: REGULAR RHYTHM, +S1, +S2 - GI/Abdominal Exam GI & Abdominal Exam: Normal Bowel Sounds, Soft. absent: Distended, Guarding, Tenderness - Extremities Exam Extremities exam: normal inspection Additional comments: no edema in LE, no calves tenderness - Neurological Exam Neurological exam: Alert, Oriented x3 Discharge Plan - Discharge Medications Prescriptions: Mirtazapine [Remeron] 30 mg PO HS #30 tab - Follow Up Plan Condition: GOOD Disposition: HOME/ ROUTINE Patient education suggested?: Yes Instructions: Depression (DC), Acute Abdominal Pain (DC) Additional Instructions: f/u w PMD Dr Butler on Apr 28 at 1pm Eat smaller, more frequent meals throughout the day to increase his weight Avoid drinking alcohol; Do not take any illicit drugs or non prescribed medications Return to ER if severe dizziness, severe abdominal pain, recurrent vomiting, or prolonged bleeding occurs Begin taking Mirtazapine 30mg daily at Bedtime Have lab work drawn on Apr 25 or Referrals: [facility] [place] [Outside]
--- NOTE | 2017-04-07 21:25 | CP.PCM.PN ---
Subjective - Date & Time of Evaluation Date of Evaluation: 04/07/17 Time of Evaluation: 14:00 - Subjective Subjective: Patient ambulating . Feels well. Not having abdominal pain. Objective - Vital Signs/Intake and Output Vital Signs (last 24 hours): Temp Pulse Resp BP Pulse Ox 99 F 68 20 103/62 99 04/07/17 15:39 04/07/17 15:39 04/07/17 15:39 04/07/17 15:39 04/07/17 15:39 - Labs Labs: 04/07/17 05:00 04/07/17 05:00 PT 10.5 Seconds (9.8-13.1) 04/05/17 15:25 INR 1.0 (0.9-1.2) 04/05/17 15:25 APTT 29.2 Seconds (25.6-37.1) 04/05/17 15:25 - Head Exam Head Exam: ATRAUMATIC - Eye Exam Eye Exam: EOMI Pupil Exam: PERRL - ENT Exam ENT Exam: Normal Exam - Neck Exam Neck Exam: Full ROM - Respiratory Exam Respiratory Exam: Clear to Ausculation Bilateral - Cardiovascular Exam Cardiovascular Exam: REGULAR RHYTHM - GI/Abdominal Exam GI & Abdominal Exam: Soft, Normal Bowel Sounds. absent: Tenderness Assessment and Plan (1) Abdominal pain Assessment & Plan: Abdominal pain resolved. Stable for discharge. Status: Acute
--- NOTE | 2017-04-08 15:47 | PQF GENQUE ---
Dr. Fernandez discharge summary documented "CXR showed evidence of acute interstitial/atypical/viral pneumonia. After study was diagnosis of pneumonia ruled in or out? If so please clarify type of pneumonia. This form is a permanent part of the medical record Clarification of your documentation is requested to better reflect the severity of illness and intensity of treatment of your patient. Indicators present [] Specify: [] [] Specify: [] [] Specify: [] [] Specify: [] Location in the medical record that reflects the above clinical findings: [] Treatment Provided: [] PHYSICIAN'S RESPONSE Peggy did not have pneumonia Based on your medical judgment of the clinical indicators outlined above please clarify the following: [] Practitioner response [] If unable to determine, please check the box, sign and date. Present On Admission (POA) Indicator: [] Present at the time of admission [] Not present at the time of admission [] Clinically Undetermined In responding to this query, please exercise your independent professional judgment. The fact that a question is asked does not imply that any particular answer is desired or expected. Thank you for your clarification on this documentation. If you have any questions please call:[ ] * Thank you, [ ]Nydia Champion barrel rifler VANESSA
--- NOTE | 2017-04-08 18:24 | CARD ---
APPROVED REPORT EKG Measurement Heart [id number] 126P10 [id number] <Conclusion> Normal sinus rhythm Incomplete right bundle branch block Borderline ECG
== END 2017-04-07 13:25 | disposition home or self-care (01) | DRG 392 ==
LOC: H.ER 13:08 → H.EROBSV 14:22 → OBSVTOIN 16:19 → H.ERHOLD 16:41 → H.ICU/CCU 18:36 → H.TEL 04-06 16:23
PROVIDERS: ADMIT Family Medicine Geriatric Medicine; ATTEND Family Medicine Geriatric Medicine
PROC: 3E0234Z Introduction of Serum, Toxoid and Vaccine into Muscle, Percutaneous Approach (ICD-10-PCS; principal; 2017-04-07)
DX: R10.9 Unspecified abdominal pain (principal); D69.6 Thrombocytopenia, unspecified; Z68.1 Body mass index [BMI] 19.9 or less, adult; R11.2 Nausea with vomiting, unspecified; Z23 Encounter for immunization; J45.909 Unspecified asthma, uncomplicated; R63.6 Underweight; M41.9 Scoliosis, unspecified; F32.9 Major depressive disorder, single episode, unspecified; Z98.2 Presence of cerebrospinal fluid drainage device; G43.909 Migraine, unspecified, not intractable, without status migrainosus

== ENCOUNTER 2017-05-18 00:03 | Emergency (ER) | payer OTHER ==
[2017-05-18 00:03] VITALS: BMI 16.9
[2017-05-18 00:06] VITALS: BP 104/64; PULSE 78; RESP 18; TEMP 97.8; O2SAT 98
[2017-05-18] MEDS ORDERED: Sodium Chloride 0.9% 1,000 ML IV STA (01:27)
[2017-05-18 01:53] LABS: BASO % 0.3 % (0.0-2.0); EOS # 0.1 K/uL (0.0-0.7); EOS % 0.6 % (0.0-4.0); HEMATOCRIT 44.4 % (35.0-51.0); LYMPH # 1.2 K/uL (1.0-4.3); LYMPH % 8.5 % (20.0-40.0); MEAN CELL VOLUME 95.2 fl (80.0-94.0); MEAN CORPUSCULAR HEMOGLOBIN 31.8 pg (27.0-31.0); MEAN CORPUSCULAR HGB CONC 33.4 g/dL (33.0-37.0); MONO # 0.9 K/uL (0.0-0.8); MONO % 6.3 % (0.0-10.0); NEUT # 11.5 K/uL (1.8-7.0); NEUT % 84.3 % (50.0-75.0); PLATELET COUNT 91 K/uL (130-400); WHITE BLOOD COUNT 13.6 K/uL (4.8-10.8)
[2017-05-18 02:06] LABS: ALB/GLOB RATIO 1.5 (1.0-2.1); ALKALINE PHOSPHATASE 93 U/L (38-126); ALT/SGPT 47 U/L (21-72); AST/SGOT 26 U/L (17-59); BILIRUBIN,TOTAL 0.4 mg/dl (0.2-1.3); BLOOD UREA NITROGEN 13 mg/dl (9-20); CALCIUM 8.8 mg/dL (8.4-10.2); CARBON DIOXIDE 26 mmol/L (22-30); CHLORIDE 102 mmol/L (98-107); GFR AFRICAN-AMERICAN > 60; GLUCOSE,RANDOM 97 mg/dL (75-110); LIPASE 34 U/L (23-300); SODIUM 139 mmol/l (132-148); TOTAL PROTEIN 7.5 G/DL (6.3-8.2)
--- NOTE | 2017-05-18 02:06 | ED PDOC ---
HPI:Nausea, Vomiting, Diarrhea Time Seen by Provider: 05/18/17 00:14 Chief Complaint (Nursing): Headache Chief Complaint (Provider): Vomiting History Per: Patient History/Exam Limitations: no limitations Onset/Duration Of Symptoms: Hrs (earlier tonight) Current Symptoms Are (Timing): Better Context: Other (Drugs) Associated Symptoms: Vomiting. denies: Fever, Diarrhea Additional Complaint(s): 46 year old male presents to ED via EMS presents to ED with complaints of vomiting x few episodes since earlier tonight and has a past medical history of asthma. (-) abdominal pain, diarrhea, or fever. Patient admits to daily marijuana use and states that his friend called EMS after onset of vomiting. Upon arrival to ED, patient denies all medical complaints. PCP: Clinic Past Medical History Reviewed: Historical Data, Nursing Documentation, Vital Signs Vital Signs: Last Vital Signs Temp 97.8 F 05/18/17 00:04 Pulse 78 05/18/17 00:04 Resp 18 05/18/17 00:04 BP 104/64 05/18/17 00:04 Pulse Ox 98 05/18/17 00:04 - Medical History PMH: Anemia, Asthma, Back Problems (scoliosis), Depression, Migraine Denies: HIV, Chronic Kidney Disease, Seizures - Surgical History Other surgeries: CHURNER shunt secondary to hydrocephalus as 7 yr old child - Family History Family History: States: No Known Family Hx - Social History Drugs: Cannabis (QD) - Home Medications Home Medications: Ambulatory Orders Medication Instructions Recorded Mirtazapine [Remeron] 30 mg PO HS #30 tab 04/07/17 Ondansetron ODT [Zofran ODT] 4 mg PO Q8 PRN #12 odt 05/18/17 - Allergies Allergies/Adverse Reactions: Allergies Allergy/AdvReac Type Severity Reaction Status Date / Time No Known Allergies Allergy Verified 10/26/16 18:14 Review of Systems ROS Statement: Except As Marked, All Systems Reviewed And Found Negative Constitutional: Negative for: Fever Gastrointestinal: Positive for: Vomiting. Negative for: Abdominal Pain, Diarrhea Physical Exam - Reviewed Nursing Documentation Reviewed: Yes Vital Signs Reviewed: Yes - Physical Exam Appears: Positive for: Non-toxic, No Acute Distress Skin: Positive for: Normal Color, Warm, Dry Eye Exam: Positive for: EOMI, Normal appearance, PERRL ENT: Positive for: Normal ENT Inspection Neck: Positive for: Normal, Painless ROM Cardiovascular/Chest: Positive for: Regular Rate, Rhythm. Negative for: Murmur Respiratory: Positive for: Normal Breath Sounds. Negative for: Respiratory Distress Gastrointestinal/Abdominal: Positive for: Normal Exam, Soft. Negative for: Tenderness Back: Positive for: Normal Inspection Extremity: Positive for: Normal ROM. Negative for: Deformity Neurologic/Psych: Positive for: Alert, Oriented. Negative for: Motor/Sensory Deficits - Laboratory Results Result Diagrams: 05/18/17 01:49 05/18/17 01:49 - ECG O2 Sat by Pulse Oximetry: 98 (RA) Pulse Ox Interpretation: Normal - Progress Re-evaluation Time: 03:12 Condition: Re-examined, Improved Medical Decision Making Medical Decision Makin Initial impression: cannabis vomiting syndrom v gastritis Initial plan: * Labs * Lipase * NS IV * Zofran Inj 4mg IV * Re-eval Scribe Attestation: Documented by Vesna Nathan acting as a scribe for Ashlee Arevalo MD. Scribe Attestation: All medical record entries made by the Scribe were at my direction and personally dictated by me. I have reviewed the chart and agree that the record accurately reflects my personal performance of the history, physical exam, medical decision making, and the department course for this patient. I have also personally directed, reviewed, and agree with the discharge instructions and disposition. Disposition - Clinical Impression Clinical Impression: Vomiting, Marijuana abuse - Patient ED Disposition Is Patient to be Admitted: No Doctor Will See Patient In The: Office Counseled Patient/Family Regarding: Studies Performed, Diagnosis, Need For Followup - Disposition Referrals: [facility] [Outside] Disposition: Routine/Home Disposition Time: 03:13 Condition: GOOD Additional Instructions: Follow up with your PCP today. Return for worsening. Prescriptions: Ondansetron ODT [Zofran ODT] 4 mg PO Q8 PRN #12 odt PRN Reason: Nausea/Vomiting Instructions: Acute Nausea and Vomiting (ED)
[2017-05-18 03:42] LABS: EOSINOPHIL 1 % (0-7); NEUTROPHIL 85 % (42-75); REACTIVE LYMPHOCYTES 1 % (0-0); TOTAL CELLS COUNTED 100
== END 2017-05-18 03:47 | disposition home or self-care (01) ==
LOC: H.ER 00:03
DX: R11.10 Vomiting, unspecified (principal); F12.10 Cannabis abuse, uncomplicated; F32.9 Major depressive disorder, single episode, unspecified; J45.909 Unspecified asthma, uncomplicated; K29.70 Gastritis, unspecified, without bleeding; Z98.2 Presence of cerebrospinal fluid drainage device
CPT/HCPCS: 80053; 83690; 85025; 96360; 99282; J2405; J7040

== ENCOUNTER 2017-05-18 06:55 | Emergency (ER) | payer OTHER ==
[2017-05-18 06:55] VITALS: BMI 16.9
[2017-05-18 07:03] VITALS: BP 108/62; PULSE 77; RESP 17; TEMP 98.1; O2SAT 100
[2017-05-18] MEDS ORDERED: Sodium Chloride 0.9% 1,000 ML IV STA (07:42)
--- NOTE | 2017-05-18 07:57 | ED PDOC ---
HPI: Abdomen Time Seen by Provider: 05/18/17 07:21 Chief Complaint (Nursing): GI Problem Chief Complaint (Provider): Vomiting and Abdominal Pain History Per: Patient History/Exam Limitations: no limitations Onset/Duration Of Symptoms: Days (x1) Current Symptoms Are (Timing): Still Present Additional History Per: Patient Additional Complaint(s): Eben Das is a 46 year old male with a previous ED visit on 05/18/17 at 00 :14 for the same complaint discharged 4 hours prior to arrival this morning presenting to the ED for an evaluation of vomiting and abdominal pain occurring for 1 day prior to arrival. He admits to daily marijuana use. He denies any shortness of breath, chest pain, bilateral leg pain, or any urinary symptoms. No numbness, tingles, weakness, dizzines. No cough, congestion. No fever. No dysuria. Upon evaluation the patient was shaking extremities at will. PMD: Clinic Past Medical History Reviewed: Historical Data, Nursing Documentation, Vital Signs Vital Signs: Last Vital Signs Temp 98.1 F 05/18/17 06:59 Pulse 77 05/18/17 06:59 Resp 17 05/18/17 06:59 BP 108/62 05/18/17 06:59 Pulse Ox 100 05/18/17 08:57 - Medical History PMH: Anemia, Asthma, Back Problems (scoliosis), Depression, Migraine Denies: HIV, Chronic Kidney Disease, Seizures - Family History Family History: States: Unknown Family Hx - Social History Current smoker - smoking cessation education provided: Yes Alcohol: Occasional Drugs: Cannabis - Home Medications Home Medications: Ambulatory Orders Medication Instructions Recorded Mirtazapine [Remeron] 30 mg PO HS #30 tab 04/07/17 Ondansetron ODT [Zofran ODT] 4 mg PO Q8 PRN #12 odt 05/18/17 Ondansetron [Zofran] 4 mg PO Q8H PRN #6 tab 05/18/17 - Allergies Allergies/Adverse Reactions: Allergies Allergy/AdvReac Type Severity Reaction Status Date / Time No Known Allergies Allergy Verified 10/26/16 18:14 Review of Systems ROS Statement: Except As Marked, All Systems Reviewed And Found Negative Cardiovascular: Negative for: Chest Pain Respiratory: Negative for: Shortness of Breath Gastrointestinal: Positive for: Vomiting, Abdominal Pain Genitourinary Male: Negative for: Dysuria, Frequency, Incontinence, Hematuria Musculoskeletal: Negative for: Leg Pain Physical Exam - Reviewed Nursing Documentation Reviewed: Yes Vital Signs Reviewed: Yes - Physical Exam Appears: Positive for: Non-toxic, No Acute Distress (patient shaking at will upon eval) Head Exam: Positive for: ATRAUMATIC, NORMOCEPHALIC Skin: Positive for: Normal Color, Warm, Dry Eye Exam: Positive for: Normal appearance, EOMI, PERRL ENT: Positive for: Normal ENT Inspection Neck: Positive for: Normal, Painless ROM Cardiovascular/Chest: Positive for: Regular Rate, Rhythm, Chest Non Tender Respiratory: Positive for: Normal Breath Sounds. Negative for: Respiratory Distress Gastrointestinal/Abdominal: Positive for: Soft, Tenderness (mild epigastric tenderness ) Back: Positive for: Normal Inspection. Negative for: L CVA Tenderness, R CVA Tenderness Extremity: Positive for: Normal ROM. Negative for: Tenderness, Pedal Edema Neurologic/Psych: Positive for: Alert, Oriented (x3). Negative for: Motor/ Sensory Deficits - Laboratory Results Result Diagrams: 05/18/17 08:10 05/18/17 08:10 Interpretation Of Abn Labs: 14.8 wbc - ECG ECG: Positive for: Interpreted By Me, Viewed By Me ECG Rhythm: Positive for: Normal QRS, Normal ST Segment, Sinus Rhythm O2 Sat by Pulse Oximetry: 100 (RA) Pulse Ox Interpretation: Normal - Progress ED Course And Treament: 929: Stable. AAOx3. Pain free. Spoke with Dr. Fernandez who wants pt. to be dc. Extensive workup done recently with no findings. Tolerated PO. Fu with clinic. Medical Decision Making Medical Decision Making: Time: 07:21 Impression: Vomiting and Abdominal Pain Plan: * ED EKG * CMP * Lipase * Troponin I * CBC (with differential) * NS 1,000 ml IV 1,000 mls/hr * Toradol 15 mg IVP * Zofran 4 mg IV * POC * Reevaluation Reviewed Head CT from 04/05/17 admission: FINDINGS: HEMORRHAGE: No intracranial hemorrhage. BRAIN: No mass effect or edema. The hill-white matter differentiation appears intact. Please note that MRI with diffusion imaging is more sensitive in the detection of acute ischemic event. VENTRICLES: Asymmetry of the frontal horns lateral ventricles which appear larger as compared to the occipital horns; may be anatomic variant. No hydronephrosis. CALVARIUM: Postsurgical changes, right frontal calvarium. PARANASAL SINUSES: Unremarkable as visualized. No significant inflammatory changes. MASTOID AIR CELLS: Unremarkable as visualized. No inflammatory changes. OTHER FINDINGS: Patient underwent a CT of the abdomen and pelvis with contrast (earlier the same day) prior to the noncontrast head CT therefore portions of the vasculature demonstrate contrast. IMPRESSION: No acute intracranial pathology identified. Additional findings as above. Scribe Attestation: Documented by Andra Morrow, acting as a scribe for Ben Calhoun MD. Provider Scribe Attestation: All medical record entries made by the Scribe were at my direction and personally dictated by me. I have reviewed the chart and agree that the record accurately reflects my personal performance of the history, physical exam, medical decision making, and the department course for this patient. I have also personally directed, reviewed, and agree with the discharge instructions and disposition. Disposition - Clinical Impression Clinical Impression: Abdominal pain - Patient ED Disposition Is Patient to be Admitted: No Counseled Patient/Family Regarding: Studies Performed, Diagnosis, Need For Followup, Rx Given - Disposition Referrals: [facility] [Outside] - 05/19/17 Disposition: Routine/Home Disposition Time: 09:00 Condition: STABLE Additional Instructions: Return if not better in 3 days. Prescriptions: Ondansetron [Zofran] 4 mg PO Q8H PRN #6 tab PRN Reason: Nausea/Vomiting Instructions: Abdominal Pain (ED) Forms: [employer] (Lao) Print Language: ICELANDIC
[2017-05-18 08:23] LABS: BASO % 0.2 % (0.0-2.0); EOS % 0.1 % (0.0-4.0); LYMPH % 6.9 % (20.0-40.0); MEAN CELL VOLUME 94.8 fl (80.0-94.0); MEAN CORPUSCULAR HGB CONC 33.8 g/dL (33.0-37.0); MEAN PLATELET VOLUME 11.8 fl (7.2-11.7); MONO % 6.9 % (0.0-10.0); NEUT # 12.7 K/uL (1.8-7.0); NEUT % 85.9 % (50.0-75.0); NRBC % 0.1 % (0.0-0.0); RED CELL DISTRIBUTION WIDTH 12.8 % (11.5-14.5); WHITE BLOOD COUNT 14.8 K/uL (4.8-10.8)
[2017-05-18 08:32] LABS: ALB/GLOB RATIO 1.5 (1.0-2.1); ALKALINE PHOSPHATASE 94 U/L (38-126); ALT/SGPT 37 U/L (21-72); AST/SGOT 26 U/L (17-59); BILIRUBIN,TOTAL 0.5 mg/dl (0.2-1.3); BLOOD UREA NITROGEN 10 mg/dl (9-20); CALCIUM 8.9 mg/dL (8.4-10.2); CARBON DIOXIDE 20 mmol/L (22-30); CHLORIDE 108 mmol/L (98-107); GFR AFRICAN-AMERICAN > 60; GLUCOSE,RANDOM 114 mg/dL (75-110); LIPASE 27 U/L (23-300); POTASSIUM 4.1 MMOL/L (3.6-5.0); SODIUM 139 mmol/l (132-148); TOTAL PROTEIN 7.1 G/DL (6.3-8.2)
--- NOTE | 2017-05-19 07:42 | CARD ---
APPROVED REPORT EKG Measurement Heart [id number] 112P55 [id number] <Conclusion> Normal sinus rhythm Normal ECG
== END 2017-05-18 10:30 | disposition home or self-care (01) ==
LOC: H.ER 06:55
DX: R10.9 Unspecified abdominal pain (principal); R11.10 Vomiting, unspecified; F32.9 Major depressive disorder, single episode, unspecified; J45.909 Unspecified asthma, uncomplicated; F12.10 Cannabis abuse, uncomplicated
CPT/HCPCS: 80053; 82948; 83690; 84484; 85025; 93005; 96374; 99282; J1885; J2405; J7040

== ENCOUNTER 2017-07-19 12:07 | Emergency (ER) | payer OTHER ==
[2017-07-19 12:08] VITALS: BMI 16.9
[2017-07-19 12:28] VITALS: BP 126/74; RESP 18; O2SAT 99
--- NOTE | 2017-07-19 14:19 | ED PDOC ---
HPI: Seizure Time Seen by Provider: 07/19/17 12:15 Chief Complaint (Nursing): Seizure Chief Complaint (Provider): Seizure History Per: Patient, Family (Brother) History/Exam Limitations: no limitations Recent Seizure Activity Began: Hours Ago: (x12) Additional Complaint(s): Eben Das is a 46 year old male with a past medical history of seizures, hydrocephalous, depression, thrombocytopenia, scoliosis, and asthma, who presents to the ED due to a seizure x12 hours. As per patient's brother patient suffered a seizure around [id number]. did not hit head or fall. States patient has a history of seizures but has never followed up with a neurologist. Reports patient has suffered 3-4 seizures this year. Patient is neurologically back to baseline at this time. PMD: Non-H Provider Past Medical History Reviewed: Historical Data, Nursing Documentation, Vital Signs Vital Signs: Last Vital Signs Temp 98 F 07/19/17 17:56 Pulse 80 07/19/17 17:56 Resp 18 07/19/17 17:56 BP 126/74 07/19/17 17:56 Pulse Ox 99 07/20/17 14:26 - Medical History PMH: Anemia, Asthma, Back Problems (scoliosis), Depression, Migraine, Seizures Denies: HIV, Chronic Kidney Disease Other PMH: Hydrocephalous, Thrombocytopenia, Scoliosis - Surgical History Other surgeries: Brain surgery for hydrocephalous - Family History Family History: States: Unknown Family Hx - Social History Current smoker - smoking cessation education provided: No Alcohol: > 2 Drinks/Day (Alcoholism) Drugs: Cannabis - Home Medications Home Medications: Ambulatory Orders Medication Instructions Recorded Mirtazapine [Remeron] 30 mg PO HS #30 tab 04/07/17 Ondansetron ODT [Zofran ODT] 4 mg PO Q8 PRN #12 odt 05/18/17 Ondansetron [Zofran] 4 mg PO Q8H PRN #6 tab 05/18/17 - Allergies Allergies/Adverse Reactions: Allergies Allergy/AdvReac Type Severity Reaction Status Date / Time No Known Allergies Allergy Verified 07/19/17 12:24 Review of Systems ROS Statement: Except As Marked, All Systems Reviewed And Found Negative Neurological: Positive for: Seizures Physical Exam - Reviewed Nursing Documentation Reviewed: Yes Vital Signs Reviewed: Yes - Physical Exam Appears: Positive for: Well, Non-toxic, No Acute Distress Head Exam: Positive for: ATRAUMATIC, NORMAL INSPECTION, NORMOCEPHALIC Skin: Positive for: Normal Color, Warm, Dry. Negative for: Rash Cardiovascular/Chest: Positive for: Regular Rate, Rhythm. Negative for: Murmur Respiratory: Positive for: Normal Breath Sounds. Negative for: Respiratory Distress Gastrointestinal/Abdominal: Positive for: Normal Exam, Bowel Sounds, Soft. Negative for: Tenderness Back: Positive for: Normal Inspection. Negative for: L CVA Tenderness, R CVA Tenderness, Vertebral Tenderness Extremity: Positive for: Normal ROM. Negative for: Pedal Edema, Deformity Neurologic/Psych: Positive for: Alert, Oriented (x3). Negative for: Motor/ Sensory Deficits Comments: Patient is physically small and low weight - Laboratory Results Result Diagrams: 07/19/17 14:15 07/19/17 14:15 - ECG O2 Sat by Pulse Oximetry: 99 (RA) Pulse Ox Interpretation: Normal Medical Decision Making Medical Decision Making: Time: 13:14 Initial Impression: Seizure r/o alcohol withdrawal Plan: --Alcohol serum --CMP --Drug screen, urine --CBC w/ differential --Reevaluation Time: 16:40 CT HEAD FINDINGS: HEMORRHAGE: No intracranial hemorrhage. BRAIN: Conde-white matter differentiation is preserved. There is no mass, mass effect or abnormal extra-axial fluid collection. VENTRICLES: There is mild dilatation of the lateral ventricles, not significantly changed since the prior examination. A right trans frontal shunt catheter tract is again identified. There is also mild dilatation of the 3rd ventricle, not significantly changed since the prior examination. The 4th ventricle is normal in size. CALVARIUM: Postsurgical changes in the right frontal bone. PARANASAL SINUSES: Unremarkable as visualized. No significant inflammatory changes. MASTOID AIR CELLS: Unremarkable as visualized. No inflammatory changes. OTHER FINDINGS: None. pt reevaluated. neurologically at baseline. imaging negative. Time: 16:53 --Patient advised to decrease alcohol intake and detox. Upon provider evaluation patient is medically stable, and requires no further treatment in the ED at this time. Counseling was provided and all questions were answered regarding diagnosis and need for follow up with Neurologist. There is agreement to discharge plan. Return if symptoms persist or worsen. Scribe Attestation: Documented by Venkat Sparks, acting as a scribe for Javad Herzog MD. Provider Scribe Attestation: All medical record entries made by the Scribe were at my direction and personally dictated by me. I have reviewed the chart and agree that the record accurately reflects my personal performance of the history, physical exam, medical decision making, and the department course for this patient. I have also personally directed, reviewed, and agree with the discharge instructions and disposition. Disposition - Clinical Impression Clinical Impression: Seizure disorder - Patient ED Disposition Is Patient to be Admitted: No Counseled Patient/Family Regarding: Studies Performed, Diagnosis, Need For Followup - Disposition Referrals: [facility] [Outside] [facility] [Outside] Anthony Hammonds MD [Staff Provider] - Disposition: Routine/Home Disposition Time: 16:53 Condition: IMPROVED Additional Instructions: follow up with neurologist in 1-2 days return to the ED with any worsening or concerning symptoms do not drive or operate machinery until cleared by neurologist consider detox for alcohol addiction Instructions: Epilepsy (ED) Forms: [employer] (Bhutanese)
[2017-07-19 14:21] LABS: BASO % 0.4 % (0.0-2.0); EOS % 0.2 % (0.0-4.0); HEMATOCRIT 42.2 % (35.0-51.0); LYMPH # 1.5 K/uL (1.0-4.3); LYMPH % 12.3 % (20.0-40.0); MEAN CELL VOLUME 93.8 fl (80.0-94.0); MEAN CORPUSCULAR HEMOGLOBIN 31.4 pg (27.0-31.0); MEAN CORPUSCULAR HGB CONC 33.5 g/dL (33.0-37.0); MEAN PLATELET VOLUME 11.3 fl (7.2-11.7); MONO # 0.8 K/uL (0.0-0.8); MONO % 6.4 % (0.0-10.0); NEUT # 9.8 K/uL (1.8-7.0); NEUT % 80.7 % (50.0-75.0); NRBC % 0.1 % (0.0-0.0); RED CELL DISTRIBUTION WIDTH 13.2 % (11.5-14.5); WHITE BLOOD COUNT 12.1 K/uL (4.8-10.8)
[2017-07-19 14:30] LABS: ALB/GLOB RATIO 1.5 (1.0-2.1); ALCOHOL SERUM < 10 mg/dl (0-10); ALKALINE PHOSPHATASE 79 U/L (38-126); ALT/SGPT 34 U/L (21-72); AST/SGOT 24 U/L (17-59); BILIRUBIN,TOTAL 0.9 mg/dl (0.2-1.3); BLOOD UREA NITROGEN 11 mg/dl (9-20); CARBON DIOXIDE 27 mmol/L (22-30); CHLORIDE 104 mmol/L (98-107); GFR AFRICAN-AMERICAN > 60; GLUCOSE,RANDOM 89 mg/dL (75-110); POTASSIUM 4.2 MMOL/L (3.6-5.0); SODIUM 139 mmol/l (132-148); TOTAL PROTEIN 7.3 G/DL (6.3-8.2)
--- NOTE | 2017-07-19 16:42 | CT ---
PROCEDURE: CT HEAD WITHOUT CONTRAST. HISTORY: seizure COMPARISON: 04/05/2017. TECHNIQUE: Axial computed tomography images were obtained through the head/brain without intravenous contrast. Radiation dose: Total exam DLP = mGy-cm. This CT exam was performed using one or more of the following dose reduction techniques: Automated exposure control, adjustment of the mA and/or kV according to patient size, and/or use of iterative reconstruction technique. FINDINGS: HEMORRHAGE: No intracranial hemorrhage. BRAIN: Conde-white matter differentiation is preserved. There is no mass, mass effect or abnormal extra-axial fluid collection. VENTRICLES: There is mild dilatation of the lateral ventricles, not significantly changed since the prior examination. A right trans frontal shunt catheter tract is again identified. There is also mild dilatation of the 3rd ventricle, not significantly changed since the prior examination. The 4th ventricle is normal in size. CALVARIUM: Postsurgical changes in the right frontal bone. PARANASAL SINUSES: Unremarkable as visualized. No significant inflammatory changes. MASTOID AIR CELLS: Unremarkable as visualized. No inflammatory changes. OTHER FINDINGS: None. IMPRESSION: Persistent mild dilatation of the lateral and 3rd ventricles, not significantly changed since the prior examination. Postsurgical changes of remote right transfrontal shunt catheter placement.
[2017-07-19 17:57] VITALS: PULSE 80; TEMP 98
== END 2017-07-19 19:00 | disposition home or self-care (01) ==
LOC: H.ER 12:07
DX: G40.909 Epilepsy, unspecified, not intractable, without status epilepticus (principal); F10.10 Alcohol abuse, uncomplicated; D69.6 Thrombocytopenia, unspecified; F32.9 Major depressive disorder, single episode, unspecified; J45.909 Unspecified asthma, uncomplicated; M41.9 Scoliosis, unspecified

== ENCOUNTER 2017-08-24 09:44 | Inpatient (IN) | payer OTHER ==
[2017-08-24 09:45] VITALS: BMI 16.9
[2017-08-24] MEDS ORDERED: Sodium Chloride 0.9% 1,000 ML IV STA (10:56)
[2017-08-24 11:23] LABS: BASO % 0.5 % (0.0-2.0); EOS # 0.1 K/uL (0.0-0.7); EOS % 0.9 % (0.0-4.0); HEMOGLOBIN 15.2 g/dL (12.0-18.0); LYMPH # 1.2 K/uL (1.0-4.3); LYMPH % 12.3 % (20.0-40.0); MEAN CELL VOLUME 93.8 fl (80.0-94.0); MEAN CORPUSCULAR HEMOGLOBIN 31.2 pg (27.0-31.0); MEAN CORPUSCULAR HGB CONC 33.3 g/dL (33.0-37.0); MEAN PLATELET VOLUME 10.4 fl (7.2-11.7); MONO # 0.5 K/uL (0.0-0.8); MONO % 5.6 % (0.0-10.0); NEUT # 7.6 K/uL (1.8-7.0); NEUT % 80.7 % (50.0-75.0); NRBC % 0.1 % (0.0-0.0); RBC 4.87 Mil/uL (4.40-5.90); RED CELL DISTRIBUTION WIDTH 13.1 % (11.5-14.5); WHITE BLOOD COUNT 9.4 K/uL (4.8-10.8)
[2017-08-24 11:31] LABS: ALB/GLOB RATIO 1.4 (1.0-2.1); ALBUMIN 4.3 g/dL (3.5-5.0); ALT/SGPT 40 U/L (21-72); AST/SGOT 22 U/L (17-59); BLOOD UREA NITROGEN 12 mg/dl (9-20); CALCIUM 9.1 mg/dL (8.4-10.2); GFR AFRICAN-AMERICAN > 60; GFR NON-AFRICAN AMERICAN > 60
--- NOTE | 2017-08-24 11:40 | CARD ---
APPROVED REPORT EKG Measurement Heart [id number] SC 130P-5 [id number] <Conclusion> Normal sinus rhythm Normal ECG
--- NOTE | 2017-08-24 11:49 | ED PDOC ---
HPI: General Adult Time Seen by Provider: 08/24/17 10:35 Chief Complaint (Nursing): Seizure History Per: Patient, EMS Additional Complaint(s): As per EMS pt. was found by his mother's homemaker having a seizure like activity for an unknown period of time. Pt. states he does not remember this. Pt. reports a hx of seizures start on May 2017. Reports he was placed on anti-seizure medications but has not taken them as he is afraid he may get addicted to it. Pt. states his family has a long addiction hx and is extremely afraid of developing a dependence. Pt. states the last time he drank alcohol was in 06/2017. Denies headache, incontinence, fever. Past Medical History Reviewed: Historical Data, Nursing Documentation, Vital Signs Vital Signs: Last Vital Signs Temp 98.9 F 08/24/17 16:54 Pulse 75 08/24/17 16:54 Resp 16 08/24/17 16:54 BP 106/61 08/24/17 16:54 Pulse Ox 99 08/24/17 16:54 - Medical History PMH: Anemia, Asthma, Back Problems (scoliosis), Depression, Migraine, Seizures Denies: HIV, Chronic Kidney Disease - Family History Family History: States: No Known Family Hx - Home Medications Home Medications: Ambulatory Orders Medication Instructions Recorded levETIRAcetam [Keppra] 500 mg PO BID 08/24/17 - Allergies Allergies/Adverse Reactions: Allergies Allergy/AdvReac Type Severity Reaction Status Date / Time No Known Allergies Allergy Verified 07/19/17 12:24 Review of Systems ROS Statement: Except As Marked, All Systems Reviewed And Found Negative Physical Exam - Reviewed Nursing Documentation Reviewed: Yes Vital Signs Reviewed: Yes - Physical Exam Appears: Positive for: Well, Non-toxic, No Acute Distress Head Exam: Positive for: ATRAUMATIC, NORMAL INSPECTION, NORMOCEPHALIC Skin: Positive for: Normal Color, Warm. Negative for: Rash Eye Exam: Positive for: EOMI, Normal appearance, PERRL ENT: Positive for: Other (abrasions on tongue ) Neck: Positive for: Normal, Painless ROM Cardiovascular/Chest: Positive for: Regular Rate, Rhythm Respiratory: Positive for: CNT, Normal Breath Sounds Gastrointestinal/Abdominal: Positive for: Normal Exam, Bowel Sounds, Soft Back: Positive for: Normal Inspection Extremity: Positive for: Normal ROM Neurologic/Psych: Positive for: Alert, Oriented - Laboratory Results Result Diagrams: 08/24/17 11:12 08/24/17 11:12 - ECG O2 Sat by Pulse Oximetry: 100 - Progress ED Course And Treament: Labs ordered. Case d/w Dr. Deleon, neurology application engineer, who recommends Depakote PO and for patient to be admitted. Also requests shunt series and EEG to be ordered. Case d/w Dr. Mantilla and arrangements made for admission. Disposition - Clinical Impression Clinical Impression: Recurrent seizures - Patient ED Disposition Is Patient to be Admitted: Yes - Disposition Disposition Time: 11:40 Condition: FAIR
[2017-08-24] MEDS ORDERED: levETIRAcetam 1,000 MG in Sodium Chloride 0.9% 100 ML IVPB ONE (11:53)
--- NOTE | 2017-08-24 12:08 | CT ---
PROCEDURE: CT HEAD WITHOUT CONTRAST. HISTORY: seizure; hx of shunt placement COMPARISON: 07/19/2017 TECHNIQUE: Axial computed tomography images were obtained through the head/brain without intravenous contrast. Radiation dose: Total exam DLP = 903 mGy-cm. This CT exam was performed using one or more of the following dose reduction techniques: Automated exposure control, adjustment of the mA and/or kV according to patient size, and/or use of iterative reconstruction technique. FINDINGS: HEMORRHAGE: No intracranial hemorrhage. BRAIN: No mass effect or edema. No atrophy or chronic microvascular ischemic changes. VENTRICLES: Unremarkable. No hydrocephalus. Lateral and 3rd ventricular mild dilatation is similar. CALVARIUM: The prior right transfrontal shunt catheter tract is similar PARANASAL SINUSES: Unremarkable as visualized. No significant inflammatory changes. MASTOID AIR CELLS: Unremarkable as visualized. No inflammatory changes. OTHER FINDINGS: None. IMPRESSION: Persistent mild dilatation of the lateral and 3rd ventricles, not significantly changed No interval pathology noted. Right frontal calvarial shunt catheter track postsurgical changes noted
[2017-08-24] MEDS ORDERED: Divalproex 500 mg ER (ONCE DAILY formulation) PO STA (12:25)
[2017-08-24 12:44] LABS: SQUAMOUS EPITHIAL < 1 /hpf (0-5); URINE BILIRUBIN NEGATIVE (NEGATIVE); URINE BLOOD NEGATIVE (NEGATIVE); URINE CLARITY CLEAR (Clear); URINE COLOR YELLOW (YELLOW); URINE GLUCOSE (UA) NEG (Normal); URINE LEUKOCYTE ESTERASE NEG Leu/uL (Negative); URINE NITRATE NEGATIVE (NEGATIVE); URINE PROTEIN NEGATIVE (NEGATIVE); URINE UROBILINOGEN 0.2-1.0 mg/dL (0.2-1.0)
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
[2017-08-24 12:58] LABS: BARBITURATES, UR NEGATIVE (NEGATIVE); BENZODIAZEPINES, UR NEGATIVE (NEGATIVE); OPIATES, UR NEGATIVE (NEGATIVE); PHENCYCLIDINE, UR NEGATIVE (NEGATIVE)
[2017-08-24] MEDS ORDERED: Multivitamin (MVI) 10 ML, Thiamine 100 MG in Sodium Chloride 0.9% 1,000 ML IV ONE (13:46)
--- NOTE | 2017-08-24 14:37 | RAD ---
PROCEDURE: HISTORY: hx shunt COMPARISON: CT head without contrast 08/24/2017 TECHNIQUE: Four images FINDINGS: The residual of a prior right frontal shunt catheter placement in the calvarium is noted. No 2 being from that along the neck thorax or abdomen is suggested. Nonspecific bowel gas pattern. IMPRESSION: No right shunt catheter tubing suggested. The remnant hardware projects over the right frontal calvarium
[2017-08-24] MEDS ORDERED: Influenza Vaccine 18yr & older 0.5 ML/45 MCG SYR IM ONE (18:54)
[2017-08-24] MEDS ORDERED: Pneumococcal 23-Valent Vaccine IM ONE (18:54)
[2017-08-25] MEDS ORDERED: Divalproex 500 mg DR(BID formulation) PO SCH (09:45)
--- NOTE | 2017-08-25 09:57 | CP.PCM.PN ---
Subjective - Date & Time of Evaluation Date of Evaluation: 08/25/17 Time of Evaluation: 09:54 - Subjective Subjective: Mr. Salazar was seen and examined at the bedside. He is alert, oriented in all spheres. He states that he has been having episodes of seizures every other month and not on any AED medications. He is able to recall some of his medical history including his childhood head surgery. He is able to move all extremities and ambulates within his room in steady gait. He denies any headache , dizziness, lightheadedness, blurred vision, nausea, or vomiting. There was no untoward events overnight. Objective - Vital Signs/Intake and Output Vital Signs (last 24 hours): Temp Pulse Resp BP Pulse Ox 99.0 F 71 18 101/60 98 08/25/17 08:00 08/25/17 08:00 08/25/17 08:00 08/25/17 08:00 08/25/17 08:00 - Medications Medications: Current Medications Divalproex Sodium (Depakote Dr(*Bid*)) 500 mg PO BID [facility] Phenylephrine HCl (Preparation H Suppositories) 1 supp [place] BID [facility] - Labs Labs: 08/24/17 11:12 08/24/17 11:12 - Constitutional Appears: No Acute Distress - Head Exam Head Exam: NORMAL INSPECTION - Neurological Exam Neurological Exam: Alert, Awake, CN II-XII Intact, Oriented x3 Neuro motor strength exam: Left Upper Extremity: 5, Right Upper Extremity: 5, Left Lower Extremity: 5, Right Lower Extremity: 5 Additional comments: Neurological stable, alert, oriented in all spheres, follows commands and sensation remains intact. Assessment and Plan (1) Seizure disorder Assessment & Plan: Case discussed with Dr. Deleon, recommend depakote 500 mg PO BID, monitor depakote anf liver function, EEG, CTA of the head and neck. REcommend also PT/ OT eval and treat. If all test results are within normal limits to discharge patient and follow up with his own neurosurgeon/ neurologist as an outpatient. Status: Acute
[2017-08-25] MEDS: Phenylephrine 0.25 % Supp PR SCH ×2 (10:00→16:55)
[2017-08-25] MEDS: Divalproex 500 mg DR(BID formulation) PO SCH ×2 (11:40→16:55)
[2017-08-25] MEDS ORDERED: Iodixanol 320 MG/ML 100 ML BOTTLE IV ONE (11:59)
[2017-08-25] MEDS ORDERED: Sodium Chloride 0.9% 50 ML IV ONE (11:59)
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
--- NOTE | 2017-08-25 18:21 | CT ---
PROCEDURE: CT Angiography of the neck and brain dated 08/25/2017. HISTORY: Seizures. COMPARISON: No prior study available for comparison though correlation made with CT scan brain 08/24/2017. TECHNIQUE: Contiguous helical/transaxial images of the neck were obtained from the level of the skull-base to the superior mediastinum in the arteriographic phase of enhancement. Coronal and sagittal reformats or also generated. IV contrast dose: 95 cc Visipaque 320 Radiation Dose - DLP: 480.21 mGy-cm FINDINGS: The current study reveals widely patent on aortic arch and widely patent origins of the great vessels. The common carotid arteries, carotid bifurcations and internal carotid artery is widely patent. The distal internal carotid arteries including the petrous, cavernous and supraclinoid segments are also widely patent without evidence of occlusion or significant stenosis. There is asymmetry of the A1 segments right-sided which is smaller in caliber than the left felt to represent an anatomic variation. . Note made of slight lobular irregularity of the right aspect of the anterior communicating artery at the junction of the anterior communicating artery, A1 and A2 segments which could represent vessel tortuosity however the possibility of a small aneurysm at this level cannot be completely excluded. MRA of the brain may be of some benefit for further evaluation. Distal anterior cerebral arteries are patent throughout without evidence of occlusion significant stenosis or large aneurysm/ The proximal middle cerebral arteries and distal branches are symmetric as well. Cervical vertebral arteries are relatively symmetric throughout without evidence of occlusion or significant stenosis. Basilar artery and posterior cerebral arteries are patent . No evidence of occlusion significant stenosis or aneurysmal dilatation. IMPRESSION: No evidence of occlusion or significant stenosis. There is asymmetry of the A1 segments of the anterior cerebral arteries right-side of which is smaller in caliber than the left which is felt to be an anatomic variation. Note made of slight of lobular irregularity along the junction of the right anterior communicating artery and right sided A1/ A2 segments . While this could represent vessel tortuosity however, the possibility of a small aneurysm in this location cannot be excluded. Followup MRA of the brain recommended. Note that these findings were discussed with ICU Nurse Dax at approximately 6:10 p.m. with written down and read back verification.
[2017-08-26 06:28] LABS: HEMOGLOBIN 15.5 g/dL (12.0-18.0); MEAN CELL VOLUME 92.6 fl (80.0-94.0); MEAN CORPUSCULAR HEMOGLOBIN 31.4 pg (27.0-31.0); MEAN CORPUSCULAR HGB CONC 33.9 g/dL (33.0-37.0); RBC 4.93 Mil/uL (4.40-5.90); RED CELL DISTRIBUTION WIDTH 12.8 % (11.5-14.5)
[2017-08-26] MEDS: Divalproex 500 mg DR(BID formulation) PO SCH ×2 (09:26→16:20)
[2017-08-26] MEDS: Phenylephrine 0.25 % Supp PR SCH ×2 (09:26→16:20)
--- NOTE | 2017-08-26 10:14 | CP.PCM.PN ---
Subjective - Date & Time of Evaluation Date of Evaluation: 08/26/17 Time of Evaluation: 10:11 - Subjective Subjective: Mr. Das was seen and examined at the bedside. He is alert, oriented in all spheres.He is able to follow simple commands and answer questions appropriately. He denies any headache, blurred vision, dizziness, lightheadedness, or any seizure activity. There was no untoward events overnight. Objective - Vital Signs/Intake and Output Vital Signs (last 24 hours): Temp Pulse Resp BP Pulse Ox 98.2 F 85 18 113/74 99 08/26/17 09:33 08/26/17 09:33 08/26/17 09:33 08/26/17 09:33 08/26/17 09:33 - Medications Medications: Current Medications Divalproex Sodium (Depakote Dr(*Bid*)) 500 mg PO BID [facility] Last Admin: 08/26/17 09:26 Dose: 500 mg Phenylephrine HCl (Preparation H Suppositories) 1 supp [place] BID [facility] Last Admin: 08/26/17 09: Dose: 1 supp - Labs Labs: 08/26/17 04:39 08/24/17 11:12 - Constitutional Appears: No Acute Distress - Head Exam Head Exam: NORMAL INSPECTION - Neurological Exam Neurological Exam: Alert, Awake, Normal Gait Neuro motor strength exam: Left Upper Extremity: 5, Right Upper Extremity: 5, Left Lower Extremity: 5, Right Lower Extremity: 5 Additional comments: Neurological unchanged from previous examination. Assessment and Plan (1) Seizure disorder Assessment & Plan: Case discussed with Dr. Deleon, continue all current medical regimen, with the valproic level abnormal high, continue the current dose of depakote after discharge. Follow up with Dr. Deleon in [address] weeks at [address] [place] [address] [place] [id number]. CTA of the head and neck showed no evidence of occlusion or significant stenosis. There is asymmetry of the A1 of the anterior cerebral arteries right- side is smaller than the left which can be anatomical variation. There is slight lobular irregularity along the junction of the right anterior communicating artery and right sided A1 A2 segment. This could be a vessel tortuosity or small aneurysm MRA is recommended. MRA of the brain- unable to do due to the presence of remnants of his past brain SX. Status: Acute
--- NOTE | 2017-08-26 17:16 | CP.PCM.PN ---
Subjective - Date & Time of Evaluation Date of Evaluation: 08/26/17 - Subjective Subjective: F/U Seizure Disorder. no AD , N/C Objective - Vital Signs/Intake and Output Vital Signs (last 24 hours): Temp Pulse Resp BP Pulse Ox 99 F 83 16 103/65 98 08/26/17 15:50 08/26/17 15:50 08/26/17 15:50 08/26/17 15:50 08/26/17 15:50 - Medications Medications: Current Medications Divalproex Sodium (Depakote Dr(*Bid*)) 500 mg PO BID [facility] Last Admin: 08/26/17 16:20 Dose: 500 mg Phenylephrine HCl (Preparation H Suppositories) 1 supp [place] BID [facility] Last Admin: 08/26/17 16:20 Dose: 1 supp - Labs Labs: 08/26/17 04:39 08/24/17 11:12 - Constitutional Appears: No Acute Distress - Head Exam Additional comments: craneotomy - Eye Exam Eye Exam: PERRL - ENT Exam ENT Exam: Normal Exam - Neck Exam Neck Exam: Normal Inspection - Respiratory Exam Respiratory Exam: Clear to Ausculation Bilateral - Cardiovascular Exam Cardiovascular Exam: REGULAR RHYTHM - GI/Abdominal Exam GI & Abdominal Exam: Soft, Normal Bowel Sounds - Extremities Exam Extremities Exam: Normal Inspection - Back Exam Back Exam: NORMAL INSPECTION - Neurological Exam Neurological Exam: Alert, Oriented x3 Additional comments: no motor/sensory deficit - Psychiatric Exam Psychiatric exam: Normal Mood - Skin Skin Exam: Warm Assessment and Plan (1) Seizure disorder Status: Acute
[2017-08-27 08:42] VITALS: RESP 20
[2017-08-27] MEDS: Divalproex 500 mg DR(BID formulation) PO SCH (08:57)
[2017-08-27] MEDS: Phenylephrine 0.25 % Supp PR SCH (08:58)
[2017-08-27] MEDS ORDERED: Chlorhexidine Gluconate 1 APPL/PKT TP ONE (09:01)
[2017-08-27 13:00] VITALS: BP 113/81; PULSE 79; TEMP 98.1; O2SAT 99
--- NOTE | 2017-08-27 14:08 | CP.PCM.DIS ---
Provider - Provider Date of Admission: 08/24/17 13:35 Attending physician: Gerardo Mantilla MD Diagnosis - Discharge Diagnosis (1) Seizure disorder Status: Acute Priority: High Hospital Course - Lab Results Lab Results: Most Recent Lab Values WBC 11.0 K/uL (4.8-10.8) H 08/26/17 04:39 RBC 4.93 Mil/uL (4.40-5.90) 08/26/17 04:39 Hgb 15.5 g/dL (12.0-18.0) 08/26/17 04:39 Hct 45.6 % (35.0-51.0) 08/26/17 04:39 MCV 92.6 fl (80.0-94.0) 08/26/17 04:39 MCH 31.4 pg (27.0-31.0) H 08/26/17 04:39 MCHC 33.9 g/dL (33.0-37.0) 08/26/17 04:39 RDW 12.8 % (11.5-14.5) 08/26/17 04:39 Plt Count 105 K/uL (130-400) L 08/26/17 04:39 MPV 10.4 fl (7.2-11.7) 08/24/17 11:12 Neut % (Auto) 80.7 % (50.0-75.0) H 08/24/17 11:12 Lymph % (Auto) 12.3 % (20.0-40.0) L 08/24/17 11:12 [place] % (Auto) 5.6 % (0.0-10.0) 08/24/17 11:12 Eos % (Auto) 0.9 % (0.0-4.0) 08/24/17 11:12 Baso % (Auto) 0.5 % (0.0-2.0) 08/24/17 11:12 Neut # 7.6 K/uL (1.8-7.0) H 08/24/17 11:12 Lymph # 1.2 K/uL (1.0-4.3) 08/24/17 11:12 [place] # 0.5 K/uL (0.0-0.8) 08/24/17 11:12 Eos # 0.1 K/uL (0.0-0.7) 08/24/17 11:12 Baso # 0.0 K/uL (0.0-0.2) 08/24/17 11:12 Sodium 139 mmol/l (132-148) 08/24/17 11:12 Potassium 4.3 MMOL/L (3.6-5.0) 08/24/17 11:12 Chloride 105 mmol/L (98-107) 08/24/17 11:12 Carbon Dioxide 24 mmol/L (22-30) 08/24/17 11:12 Anion Gap 14 (10-20) 08/24/17 11:12 BUN 12 mg/dl (9-20) 08/24/17 11:12 Creatinine 0.8 mg/dl (0.8-1.5) 08/24/17 11:12 Est GFR ( Amer) > 60 08/24/17 11:12 Est GFR (Non-Af Amer) > 60 08/24/17 11:12 POC Glucose (mg/dL) 90 mg/dL (65-110) 08/24/17 11:03 Random Glucose 90 mg/dL (75-110) 08/24/17 11:12 Calcium 9.1 mg/dL (8.4-10.2) 08/24/17 11:12 Total Bilirubin 0.6 mg/dl (0.2-1.3) 08/24/17 11:12 AST 22 U/L (17-59) 08/24/17 11:12 ALT 40 U/L (21-72) 08/24/17 11:12 Alkaline Phosphatase 88 U/L (38-126) 08/24/17 11:12 Total Protein 7.4 G/DL (6.3-8.2) 08/24/17 11:12 Albumin 4.3 g/dL (3.5-5.0) 08/24/17 11:12 Globulin 3.1 gm/dL (2.2-3.9) 08/24/17 11:12 Albumin/Globulin Ratio 1.4 (1.0-2.1) 08/24/17 11:12 Urine Color Yellow (YELLOW) 08/24/17 12:23 Urine Clarity Clear (Clear) 08/24/17 12:23 Urine pH 6.0 (5.0-8.0) 08/24/17 12:23 Ur Specific [place] 1.019 (1.003-1.030) 08/24/17 12:23 Urine Protein Negative mg/dL (NEGATIVE) 08/24/17 12:23 Urine Glucose (UA) Neg mg/dL (Normal) 08/24/17 12:23 Urine Ketones Negative mg/dL (NEGATIVE) 08/24/17 12:23 Urine Blood Negative (NEGATIVE) 08/24/17 12:23 Urine Nitrate Negative (NEGATIVE) 08/24/17 12:23 Urine Bilirubin Negative (NEGATIVE) 08/24/17 12:23 Urine Urobilinogen 0.2-1.0 mg/dL (0.2-1.0) 08/24/17 12:23 Ur Leukocyte Esterase Neg Mahad/uL (Negative) 08/24/17 12:23 Urine RBC (Auto) 1 /hpf (0-3) 08/24/17 12:23 Urine Microscopic WBC < 1 /hpf (0-5) 08/24/17 12:23 Ur Squamous Epith Cells < 1 /hpf (0-5) 08/24/17 12:23 Urine Opiates Screen Negative (NEGATIVE) 08/24/17 12:23 Urine Methadone Screen Negative (NEGATIVE) 08/24/17 12:23 Ur Barbiturates Screen Negative (NEGATIVE) 08/24/17 12:23 Valproic Acid 76.7 ug/mL (50.0-100.0) 08/26/17 04:39 Ur Phencyclidine Scrn Negative (NEGATIVE) 08/24/17 12:23 Ur Amphetamines Screen Negative (NEGATIVE) 08/24/17 12:23 U Benzodiazepines Scrn Negative (NEGATIVE) 08/24/17 12:23 U Oth Cocaine Metabols Negative (NEGATIVE) 08/24/17 12:23 U Cannabinoids Screen Positive (NEGATIVE) H 08/24/17 12:23 Alcohol, Quantitative < 10 mg/dl (0-10) 08/24/17 11:12 - Hospital Course Hospital Course: 46 yrs old male Ad with Seizure DOA, Patient with headache and tongue abrassion. Patient non compliant with seizure medication. Hx of Seizure disorder , Chilhood craneotomy with shunt , chilhood migraine, depression , Anemia Scoliosis Asthma IBS , BPH Head CT persistant mild dilatation lateral and 3th ventricle , with no change , R frontal calvarial catheter track, CT head and Neck no significant occlusion or stenosis . Neurology consult patient neurologically stable , recommended Depakote 500mg bid , upon discharge AOx3 no sensory or motor deficit , f/u PMD and Neurologist in one week Discharge Exam - Head Exam Head Exam: NORMAL INSPECTION Additional comments: craneotomy - Eye Exam Eye Exam: PERRL - ENT Exam ENT Exam: Normal Exam - Neck Exam Neck exam: Normal Inspection - Respiratory Exam Respiratory Exam: NORMAL BREATHING PATTERN - Cardiovascular Exam Cardiovascular Exam: REGULAR RHYTHM - GI/Abdominal Exam GI & Abdominal Exam: Normal Bowel Sounds, Soft - Extremities Exam Extremities exam: normal inspection - Back Exam Back exam: NORMAL INSPECTION - Neurological Exam Neurological exam: Alert, CN II-XII Intact, Oriented x3 Additional comments: no motor/sensory deficit - Psychiatric Exam Psychiatric exam: Normal Affect, Normal Mood - Skin Skin Exam: Warm Discharge Plan - Discharge Medications Prescriptions: Divalproex [Depakote DR(*BID*)] 500 mg PO BID #60 tcp - Follow Up Plan Condition: FAIR Disposition: HOME/ ROUTINE
--- NOTE | 2017-08-29 09:07 | EEG ---
DATE: 08/24/2017 TECHNICAL DESCRIPTION: This is a 16-channel EEG acquired using [employer] System. Data acquisition with the use of spike detection program. There is a normal posterior dominant rhythm at 10 Hz, which is reactive, symmetric, and attenuates with eye opening. There are no interictal epileptiform discharges. There are no clinical and subclinical seizures. There is increased beta present in the frontal regions, more than normal throughout the record. There is intermittent generalized slowing. There is no sleep captured. IMPRESSION: This is a normal awake and drowsy electroencephalogram with the presence of increased beta, indicates medication effect. Clinical correlation is required. Librado Deleon MD
== END 2017-08-27 15:30 | disposition home or self-care (01) | DRG 101 ==
LOC: H.ER 09:44 → H.ERHOLD 13:35 → H.TEL 17:50
PROVIDERS: ADMIT Internal Medicine Pulmonary Disease; ATTEND Internal Medicine Pulmonary Disease
PROC: 3E0234Z Introduction of Serum, Toxoid and Vaccine into Muscle, Percutaneous Approach (ICD-10-PCS; principal; 2017-08-25)
DX: G40.909 Epilepsy, unspecified, not intractable, without status epilepticus (principal); G91.9 Hydrocephalus, unspecified; M41.9 Scoliosis, unspecified; J45.909 Unspecified asthma, uncomplicated; Z23 Encounter for immunization; F32.9 Major depressive disorder, single episode, unspecified; G43.909 Migraine, unspecified, not intractable, without status migrainosus; Z91.14 Patient's other noncompliance with medication regimen; Z98.2 Presence of cerebrospinal fluid drainage device; Z85.46 Personal history of malignant neoplasm of prostate; K58.9 Irritable bowel syndrome, unspecified; N40.0 Benign prostatic hyperplasia without lower urinary tract symptoms; Z87.891 Personal history of nicotine dependence; D64.9 Anemia, unspecified

== ENCOUNTER 2018-07-21 16:16 | Emergency (ER) | payer OTHER ==
[2018-07-21 16:17] VITALS: BMI 16.9
[2018-07-21] MEDS ORDERED: Sodium Chloride 0.9% 1,000 ML IV STA (16:40)
[2018-07-21 16:57] LABS: BASO % 0.3 % (0.0-2.0); EOS # 0.1 K/uL (0.0-0.7); HEMOGLOBIN 14.1 g/dL (12.0-18.0); LYMPH % 23.9 % (20.0-40.0); MEAN CELL VOLUME 96.2 fl (80.0-94.0); MEAN CORPUSCULAR HEMOGLOBIN 32.2 pg (27.0-31.0); MEAN CORPUSCULAR HGB CONC 33.5 g/dL (33.0-37.0); MEAN PLATELET VOLUME 11.6 fl (7.2-11.7); MONO # 0.6 K/uL (0.0-0.8); NEUT # 5.5 K/uL (1.8-7.0); NEUT % 67.8 % (50.0-75.0); RBC 4.39 Mil/uL (4.40-5.90); RED CELL DISTRIBUTION WIDTH 13.1 % (11.5-14.5); WHITE BLOOD COUNT 8.2 K/uL (4.8-10.8)
[2018-07-21 17:06] LABS: ALB/GLOB RATIO 1.3 (1.0-2.1); ALBUMIN 4.3 g/dL (3.5-5.0); ALT/SGPT 29 U/L (21-72); AST/SGOT 27 U/L (17-59); BLOOD UREA NITROGEN 11 mg/dl (9-20); CALCIUM 8.9 mg/dL (8.4-10.2); GFR NON-AFRICAN AMERICAN > 60
--- NOTE | 2018-07-21 17:28 | ED PDOC ---
HPI: Seizure Time Seen by Provider: 07/21/18 16:25 Chief Complaint (Nursing): Weakness/Neurological Deficit Chief Complaint (Provider): Seizure History Per: Patient History/Exam Limitations: no limitations Recent Seizure Activity Began: Just Before Arrival Number Of Seizures: One Length Of Seizures (Duration): Unknown Additional Complaint(s): 47 y/o male with a PMHx of Anemia, Asthma, Back Problems, Depression, Migraine and Seizures brought in by ambulance for evaluation of seizure, onset prior to arrival. Ambulance was called to the home by the patient's mother who reported to him that he had a seizure. Patient is unsure how long the seizure lasted. Patient states he is complaint with seizure medications but does report of feeling sick this morning. Patient did not go to work today. 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 As per patient, seizure disorder began at that time as well. Patient additionally reports of using marijuana regularly, with his last use being last night. Denies urine incontinence and headache. 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 PMD: No Provider Neurologist: Patient cannot recall. Past Medical History Reviewed: Historical Data, Nursing Documentation, Vital Signs Vital Signs: Last Vital Signs Temp 98.2 F 07/21/18 16:22 Pulse 78 07/21/18 16:38 Resp 26 H 07/21/18 16:38 BP 96/58 L 07/21/18 16:38 Pulse Ox 99 07/21/18 16:38 - Medical History PMH: Anemia, Asthma, Back Problems (scoliosis), Depression, Migraine, Seizures Denies: HIV, Chronic Kidney Disease - Surgical History Other surgeries: hydrocephalus ZIGZAG TUNNEL ELASTIC OPERATOR shunt - Family History Family History: States: No Known Family Hx - Social History Current smoker - smoking cessation education provided: No Ex-Smoker (has not smoked in the last 12 months): Yes (1 year ago) Alcohol: None Drugs: Other (Marijuana) - Home Medications Home Medications: Ambulatory Orders Medication Instructions Recorded RX: Divalproex [Luz WRIGHT(*BID*)] 500 mg PO BID #60 tcp 08/26/17 - Allergies Allergies/Adverse Reactions: Allergies Allergy/AdvReac Type Severity Reaction Status Date / Time No Known Allergies Allergy Verified 07/21/18 16:21 Review of Systems ROS Statement: Except As Marked, All Systems Reviewed And Found Negative Genitourinary Male: Negative for: Incontinence Neurological: Positive for: Seizures. Negative for: Headache Physical Exam - Reviewed Nursing Documentation Reviewed: Yes Vital Signs Reviewed: Yes - Physical Exam Appears: Positive for: Non-toxic, No Acute Distress Head Exam: Positive for: ATRAUMATIC, NORMOCEPHALIC Skin: Positive for: Warm, Dry Eye Exam: Positive for: EOMI, PERRL ENT: Negative for: Pharyngeal Erythema, Tonsillar Exudate Neck: Positive for: Painless ROM, Supple Cardiovascular/Chest: Positive for: Regular Rate, Rhythm. Negative for: Murmur Respiratory: Positive for: Normal Breath Sounds. Negative for: Wheezing Gastrointestinal/Abdominal: Positive for: Soft. Negative for: Tenderness Back: Positive for: Normal Inspection. Negative for: Muscle Spasm Extremity: Positive for: Normal ROM. Negative for: Deformity Lymphatic: Negative for: Adenopathy Neurologic/Psych: Positive for: Alert, Oriented (x3), Mood/Affect (Anxious Mood/Affect. Patient is somewhat tearful in the ER. ). Negative for: Motor/Sensory Deficits, Other (slurred speech) - Laboratory Results Result Diagrams: 07/21/18 16:51 07/21/18 16:51 - ECG O2 Sat by Pulse Oximetry: 99 (RA) Pulse Ox Interpretation: Normal Medical Decision Making Medical Decision Making: Time: 1639 Impression: Seizure Differentials include but not limited to breakthrough seizure, subtherapeutic anti-epileptic medications, electrolyte abnormality, dehydration and recurrent hydrocephalus Plan: -- CT Head w/o Contrast -- Alcohol Serum -- CMP -- Creatine Phospokinase -- Urine Drug Screen -- Lact Acid, Plasma -- Magnesium -- Phosphorus -- Valproic Acid -- ED Urine Dipstick -- CBC with Differentials -- Glucose, POC -- Sodium Chloride IV 1000 mls/hr -- Social Work Job Titles -- IV Insertion -- Glucose, Blood, POC Time: 1733 CT RESULTS FINDINGS: HEMORRHAGE: No acute parenchymal, subarachnoid or extra-axial hemorrhage. BRAIN: Redemonstrated is a small localized area of encephalomalacia right frontal lobe which extends from the cortical to ventricular surfaces on subjacent to a david hole. Findings likely related to since removed ventriculostomy tube a. Clinical correlation recommended... VENTRICLES: Persistent dilatation of the 3rd and lateral ventricles consistent with chronic compensated obstructive hydrocephalus unchanged from prior exam CALVARIUM: Apart from the the aforementioned right frontal david hole, calvarium otherwise appears intact. PARANASAL SINUSES: Small fluid level left maxillary antrum. MASTOID AIR CELLS: Unremarkable as visualized. No inflammatory changes. OTHER FINDINGS: None. IMPRESSION: No acute intracranial hemorrhage. Persistent dilatation of the 3rd and lateral ventricles consistent with chronic compensated obstructive hydrocephalus. Small localized area of encephalomalacia again seen right frontal lobe subjacent to a right frontal david hole likely related to since removed ventriculostomy tube. Small fluid level seen left maxillary antrum. Time: 1827 -- Labs demonstrate elevated lactic acid, consistent with recent seizure as well as subtherapeutic valproic acid. Loading dose of IV valproic acid ordered. Patient is stable for discharge home. Scribe Attestation: Documented by Daryl Ramos, acting as a scribe for Patricia Dejesus MD. Provider Scribe Attestation: All medical record entries made by the Scribe were at my direction and personally dictated by me. I have reviewed the chart and agree that the record accurately reflects my personal performance of the history, physical exam, medical decision making, and the department course for this patient. I have also personally directed, reviewed, and agree with the discharge instructions and dis position. Disposition - Clinical Impression Clinical Impression: Seizure Counseled Patient/Family Regarding: Studies Performed, Diagnosis, Need For Followup - Disposition Disposition: Routine/Home Disposition Time: 18:20 Condition: STABLE Additional Instructions: CONTINUE ALL YOUR MEDICATIONS PRESCRIBED AND FOLLOW UP WITH YOUR NEUROLOGIST NEXT WEEK Instructions: Seizures, Adult (DC)
--- NOTE | 2018-07-21 17:41 | CT ---
Date of service: 07/21/2018 PROCEDURE: CT HEAD WITHOUT CONTRAST. HISTORY: Seizure h/o hydrocephalus COMPARISON: Comparison made with CT scan the of the brain dated 08/25/2017. TECHNIQUE: Axial computed tomography images were obtained through the head/brain without intravenous contrast. Radiation dose: Total exam DLP = 1248.67 mGy-cm. This CT exam was performed using one or more of the following dose reduction techniques: Automated exposure control, adjustment of the mA and/or kV according to patient size, and/or use of iterative reconstruction technique. FINDINGS: HEMORRHAGE: No acute parenchymal, subarachnoid or extra-axial hemorrhage. BRAIN: Redemonstrated is a small localized area of encephalomalacia right frontal lobe which extends from the cortical to ventricular surfaces on subjacent to a david hole. Findings likely related to since removed ventriculostomy tube a. Clinical correlation recommended... VENTRICLES: Persistent dilatation of the 3rd and lateral ventricles consistent with chronic compensated obstructive hydrocephalus unchanged from prior exam CALVARIUM: Apart from the the aforementioned right frontal david hole, calvarium otherwise appears intact. PARANASAL SINUSES: Small fluid level left maxillary antrum. MASTOID AIR CELLS: Unremarkable as visualized. No inflammatory changes. OTHER FINDINGS: None. IMPRESSION: No acute intracranial hemorrhage. Persistent dilatation of the 3rd and lateral ventricles consistent with chronic compensated obstructive hydrocephalus. Small localized area of encephalomalacia again seen right frontal lobe subjacent to a right frontal david hole likely related to since removed ventriculostomy tube. Small fluid level seen left maxillary antrum.
[2018-07-21 17:59] LABS: BARBITURATES, UR NEGATIVE (NEGATIVE); BENZODIAZEPINES, UR NEGATIVE (NEGATIVE); OPIATES, UR NEGATIVE (NEGATIVE); PHENCYCLIDINE, UR NEGATIVE (NEGATIVE)
[2018-07-21] MEDS ORDERED: Valproate 500 MG in Sodium Chloride 0.9% 100 ML IVPB STA (18:20)
[2018-07-21 19:50] VITALS: BP 108/57; PULSE 73; RESP 18; TEMP 98.4
[2018-07-22 20:34] VITALS: O2SAT 99
== END 2018-07-21 20:17 | disposition home or self-care (01) ==
LOC: H.ER 16:16
DX: G40.909 Epilepsy, unspecified, not intractable, without status epilepticus (principal); Z86.59 Personal history of other mental and behavioral disorders; J45.909 Unspecified asthma, uncomplicated; Z87.891 Personal history of nicotine dependence
CPT/HCPCS: 70450; 80053; 80164; 80320; 80324; 80345; 80346; 80349; 80353; 80358; 80361; 82550; 82948; 83605; 83735; 83992; 84100; 85025; 96361; 96374; 99285; J7030

== ENCOUNTER 2018-11-24 18:39 | Emergency (ER) | payer OTHER ==
[2018-11-24 18:39] VITALS: BMI 16.9
[2018-11-24 18:45] VITALS: RESP 18; O2SAT 100
[2018-11-24] MEDS ORDERED: Sodium Chloride 0.9% 1,000 ML IV STA (18:56)
[2018-11-24 19:47] LABS: BASO % 0.4 % (0.0-2.0); EOS % 0.4 % (0.0-4.0); HEMOGLOBIN 14.4 g/dL (12.0-18.0); LYMPH # 1.4 K/uL (1.0-4.3); MEAN CORPUSCULAR HEMOGLOBIN 31.4 pg (27.0-31.0); MEAN CORPUSCULAR HGB CONC 33.5 g/dL (33.0-37.0); MEAN PLATELET VOLUME 11.6 fl (7.2-11.7); MONO # 0.8 K/uL (0.0-0.8); MONO % 6.8 % (0.0-10.0); NEUT # 9.3 K/uL (1.8-7.0); NEUT % 80.4 % (50.0-75.0); RBC 4.57 Mil/uL (4.40-5.90); RED CELL DISTRIBUTION WIDTH 13.3 % (11.5-14.5); WHITE BLOOD COUNT 11.6 K/uL (4.8-10.8)
[2018-11-24 19:59] LABS: ALB/GLOB RATIO 1.4 (1.0-2.1); ALBUMIN 4.4 g/dL (3.5-5.0); ALT/SGPT 34 U/L (21-72); AST/SGOT 26 U/L (17-59); BLOOD UREA NITROGEN 18 mg/dl (9-20); CALCIUM 9.2 mg/dL (8.4-10.2); GFR NON-AFRICAN AMERICAN > 60
--- NOTE | 2018-11-24 20:20 | ED PDOC ---
HPI: Seizure Time Seen by Provider: 11/24/18 18:48 Chief Complaint (Nursing): Seizure Chief Complaint (Provider): Seizure History Per: Patient History/Exam Limitations: no limitations Recent Seizure Activity Began: Just Before Arrival Length Of Seizures (Duration): Minutes Additional Complaint(s): 48 y/o male with a PMHx of Seizure Disorder presents to the ED for evaluation of a seizure, onset prior to arrival. Patient reports that while at home, he had gotten out of bed and according to his family and had a seizure. Patient notes of having hit his head on something and is now complaining of a left sided headache. Patient reports he is complaint with all his medications. Otherwise, patient denies recent change in medications, recent stressors, alcohol and drug abuse. Patient admits to daily marijuana use. Witness reported seizure lasted 5 to 10 minutes. PMD: no provider Past Medical History Reviewed: Historical Data, Nursing Documentation, Vital Signs Vital Signs: Last Vital Signs Temp 98.1 F 11/24/18 18:43 Pulse 87 11/24/18 18:43 Resp 18 11/24/18 18:43 BP 118/80 11/24/18 18:43 Pulse Ox 100 11/24/18 18:43 - Medical History PMH: Anemia, Asthma, Back Problems (scoliosis), Depression, Migraine, Seizures Denies: HIV, Chronic Kidney Disease - Surgical History Surgical History: No Surg Hx - Family History Family History: States: Unknown Family Hx - Social History Current smoker - smoking cessation education provided: No Alcohol: None Drugs: Other (marijuana) - Home Medications Home Medications: Ambulatory Orders Medication Instructions Recorded Divalproex [Luz WRIGHT(*BID*)] 500 mg PO BID #60 tcp 08/26/17 - Allergies Allergies/Adverse Reactions: Allergies Allergy/AdvReac Type Severity Reaction Status Date / Time No Known Allergies Allergy Verified 11/24/18 18:43 Review of Systems ROS Statement: Except As Marked, All Systems Reviewed And Found Negative (as per HPI) Neurological: Positive for: Seizures Physical Exam - Reviewed Nursing Documentation Reviewed: Yes Vital Signs Reviewed: Yes - Physical Exam Appears: Positive for: No Acute Distress Head Exam: Negative for: NORMAL INSPECTION (Erythema to the left temporal forehead and brow. ) Skin: Positive for: Warm, Dry Eye Exam: Positive for: EOMI, PERRL. Negative for: Nystagmus ENT: Positive for: Pharynx Is (clear), Other (mucus membranes moist) Neck: Positive for: Painless ROM, Supple Cardiovascular/Chest: Positive for: Regular Rate, Rhythm. Negative for: Murmur Respiratory: Positive for: Normal Breath Sounds. Negative for: Respiratory Distress Gastrointestinal/Abdominal: Positive for: Soft. Negative for: Tenderness Back: Positive for: Normal Inspection. Negative for: Decreased ROM Extremity: Positive for: Normal ROM, Other (tremulous extremities) Lymphatic: Negative for: Adenopathy Neurological/Psych: Positive for: Awake, Alert, Oriented (x3), Mood/Affect (Anxious ). Negative for: Facial Droop, Other (slurred speech) - Laboratory Results Result Diagrams: 11/24/18 19:42 11/24/18 19:42 Lab Results: Total Bilirubin 0.5 mg/dl (0.2-1.3) 11/24/18 19:42 AST 26 U/L (17-59) 11/24/18 19:42 ALT 34 U/L (21-72) 11/24/18 19:42 Alkaline Phosphatase 81 U/L (38-126) 11/24/18 19:42 Total Protein 7.5 G/DL (6.3-8.2) 11/24/18 19:42 Albumin 4.4 g/dL (3.5-5.0) 11/24/18 19:42 Globulin 3.1 gm/dL (2.2-3.9) 11/24/18 19:42 Albumin/Globulin Ratio 1.4 (1.0-2.1) 11/24/18 19:42 - ECG O2 Sat by Pulse Oximetry: 100 (RA) Pulse Ox Interpretation: Normal Medical Decision Making Medical Decision Making: Time: 1854 Impression: Breakthrough Seizure Differentials include but not limited to sub-therapeutic anti-epileptics, electrolyte abnormality, dehydration and stress Plan: -- CT Head w/o Contrast -- Alcohol Serum -- CMP -- Urine Drug Screen -- Lact Acid, Plasma -- Magnesium -- Phosphorus -- Valproic -- ED Urine Dipstick -- CBC with Differentials -- Sodium Chloride IV 1000 mls/hr -- Wire Tester -- IV Insertion -- Glucose, Blood POC Name: GEOVANNY XIAO Exam Date: Nov 24, 2018 7:15:05 PM EDT Modality Type: CT Description: CT - BRAIN WITH CORONAL AND SAGITTAL MPRS Gender: M Laterality: Not applicable : 74 Referring Physician: Patricia Dejesus EXAM: CT Head Without IV contrast. CLINICAL HISTORY: Head injury recur sz, evp operations shunt TECHNIQUE: Axial computed tomography images of the head/brain without intravenous contrast. COMPARISON: None provided. FINDINGS: BRAIN: No acute intraparenchymal hemorrhage. No mass lesion. No CT evidence for acute territorial infarct. No midline shift or extra-axial collections. VENTRICLES: No hydrocephalus. ORBITS: The orbits are unremarkable. SINUSES AND MASTOIDS: The paranasal sinuses and mastoid air cells are clear. BONES: Craniotomy and postsurgical changes seen at the right frontoparietal region. SOFT TISSUES: Unremarkable. IMPRESSION: No acute intracranial abnormality. Postsurgical changes right frontoparietal region. Clinical correlation advised. Electronically signed on Nov 24, 2018 7:59:52 PM EDT by: Raffy Lund M.D., Certified by [facility], Diagnostic Radiology Labs demonstrate subtherapeutic levels of valproic acid. IV loading dose ordered. Reviewed findings with pt who reports he did take meds today. Emphasized importance of taking all meds daily as prescribed. Scribe Attestation: Documented by Daryl Ramos, acting as a scribe for Patricia Dejesus MD. Provider Scribe Attestation: All medical record entries made by the Scribe were at my direction and personally dictated by me. I have reviewed the chart and agree that the record accurately reflects my personal performance of the history, physical exam, medical decision making, and the department course for this patient. I have also personally directed, reviewed, and agree with the discharge instructions and disposition. Disposition - Clinical Impression Clinical Impression: Recurrent seizures - Disposition Disposition: Routine/Home Disposition Time: 21:09 Condition: STABLE Additional Instructions: TAKE ALL YOUR MEDICATIONS PRESCRIBED FOLLOWUP WITH YOUR NEUROLOGIST SOON POSSIBLE FOR REEVALUATION Instructions: Seizures, Adult (DC), Minor Head Injury (DC)
[2018-11-24 21:13] LABS: BARBITURATES, UR NEGATIVE (NEGATIVE); BENZODIAZEPINES, UR NEGATIVE (NEGATIVE); OPIATES, UR NEGATIVE (NEGATIVE); PHENCYCLIDINE, UR NEGATIVE (NEGATIVE)
[2018-11-24] MEDS ORDERED: Valproate 500 MG in Sodium Chloride 0.9% 100 ML IVPB ONE (21:15)
[2018-11-24 22:48] VITALS: BP 122/81; PULSE 67; TEMP 98.4
--- NOTE | 2018-11-25 08:18 | CT ---
Date of service: 11/24/2018 PROCEDURE: CT HEAD WITHOUT CONTRAST. 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 TECHNIQUE: Axial computed tomography images were obtained through the head/brain without intravenous contrast. Radiation dose: Total exam DLP = 1069.59 mGy-cm. This CT exam was performed using one or more of the following dose reduction techniques: Automated exposure control, adjustment of the mA and/or kV according to patient size, and/or use of iterative reconstruction technique. FINDINGS: HEMORRHAGE: No acute parenchymal, subarachnoid hemorrhage. BRAIN: There is localized area low-attenuation seen extending through the right frontal lobe subjacent to a right frontal david hole to the superior anterior ventricular surface consistent felt to be secondary to a since removed ventriculostomy tube. Moderate central volume loss. VENTRICLES: Persistent [id number] dilatation of the 3rd and lateral ventricles possibly due to chronic compensated obstructive hydrocephalus. CALVARIUM: Aside from aforementioned right frontal david hole, calvarium appears intact PARANASAL SINUSES: Unremarkable as visualized. No significant inflammatory changes. MASTOID AIR CELLS: Unremarkable as visualized. No inflammatory changes. OTHER FINDINGS: None. IMPRESSION: No acute intracranial hemorrhage. Localized encephalomalacia changes right frontal lobe subjacent to a right frontal david hole. Persistent dilatation of the 3rd and lateral ventricles possibly due to chronic compensated obstructive hydrocephalus. Moderate central volume loss.
== END 2018-11-24 22:48 | disposition home or self-care (01) ==
LOC: H.ER 18:39
DX: G40.909 Epilepsy, unspecified, not intractable, without status epilepticus (principal); S09.90XA Unspecified injury of head, initial encounter; W19.XXXA Unspecified fall, initial encounter; Y92.003 Bedroom of unspecified non-institutional (private) residence as the place of occurrence of the external cause; F12.90 Cannabis use, unspecified, uncomplicated
CPT/HCPCS: 70450; 80053; 80164; 80320; 80324; 80345; 80346; 80349; 80353; 80358; 80361; 82948; 83735; 83992; 84100; 85025; 96374; 99285; J7030